=== PATIENT | male | born 1965 | race Caucasian/White ===

== ENCOUNTER 2017-04-08 11:21 | Inpatient (IN) | payer MEDICARE, OTHER ==
[2017-04-08] MEDS ORDERED: HEPARIN SODIUM,PORCINE 5,000 UNIT/ML 1 ML VIAL IV STA (11:38)
[2017-04-08] MEDS ORDERED: NITROGLYCERIN SL TABS 0.4 MG TAB SUBLINGUAL STA ×3 (11:38)
[2017-04-08] MEDS ORDERED: SODIUM CHLORIDE 0.9% 1,000 ML IV STA (11:38)
[2017-04-08] MEDS ORDERED: ASPIRIN 81 MG CHEW PO STA (11:38)
[2017-04-08] MEDS ORDERED: ATORVASTATIN 80 MG TAB PO STA (11:39)
[2017-04-08] MEDS ORDERED: LORazepam 2 MG/ML SYRINGE IV STA (11:39)
--- NOTE | 2017-04-08 11:43 | ED ---
General Adult HPI - General Chief complaint: Chest Pain Stated complaint: chest pain Time Seen by Provider: 04/08/17 11:25 Source: patient, family, RN notes reviewed Mode of arrival: wheelchair Limitations: no limitations - History of Present Illness Initial comments: This is a 51-year-old male who has a past medical history significant for smoking patient denies diabetes hypertension high cholesterol. Patient states proximal that one hour ago he started having chest pain radiated down his left arm. Patient states he was pretty intense so he came to the emergency department. Patient denies any previous cardiac history. Patient denies any shortness of breath or difficulty breathing. Patient denies any diaphoresis. Patient denies abdominal pain patient denies nausea vomiting or diarrhea. Patient denies any recent fever chills or cough. Patient denies any lightheadedness dizziness or near syncopal episode. - Related Data Home Medications Medication Instructions Recorded Confirmed Ibuprofen [Motrin] 200 mg PO Q6HR PRN 04/08/17 04/08/17 Allergies Allergy/AdvReac Type Severity Reaction Status Date / Time No Known Allergies Allergy Verified 04/08/17 11:27 Review of Systems ROS Statement: Those systems with pertinent positive or pertinent negative responses have been documented in the HPI. ROS Other: All systems not noted in ROS Statement are negative. Past Medical History Past Medical History: No Reported History History of Any Multi-Drug Resistant Organisms: None Reported Past Surgical History: Appendectomy Past Psychological History: Depression Smoking Status: Current every day smoker Past Alcohol Use History: Occasional Past Drug Use History: Marijuana General Exam - General Exam Comments Initial Comments: GENERAL: Patient is well-developed and well-nourished. Patient is nontoxic and well- hydrated and is in mild distress. ENT: Neck is soft and supple. No significant lymphadenopathy is noted. Oropharynx is clear. Moist mucous membranes. Neck has full range of motion without eliciting any pain. EYES: The sclera were anicteric and conjunctiva were pink and moist. Extraocular movements were intact and pupils were equal round and reactive to light. Eyelids were unremarkable. PULMONARY: Unlabored respirations. Good breath sounds bilaterally. No audible rales rhonchi or wheezing was noted. CARDIOVASCULAR: There is a regular rate and rhythm without any murmurs gallops or rubs. Femoral pulses are good ABDOMEN: Soft and nontender with normal bowel sounds. No palpable organomegaly was noted. There is no palpable pulsatile mass. SKIN: Skin is clear with no lesions or rashes and otherwise unremarkable. NEUROLOGIC: Patient is alert and oriented x3. Cranial nerves II through XII are grossly intact. Motor and sensory are also intact. Normal speech, volume and content. Symmetrical smile. MUSCULOSKELETAL: Normal extremities with adequate strength and full range of motion. No lower extremity swelling or edema. No calf tenderness. LYMPHATICS: No significant lymphadenopathy is noted PSYCHIATRIC: Normal psychiatric evaluation. Normal interpersonal interactions appears functionally intact in deals appropriately with others. No signs of depression. Patient is moderately anxious Limitations: no limitations Course Vital Signs 04/08/17 11:24 Temperature 96.7 F L Pulse Rate 67 Respiratory 18 Rate Blood Pressure 138/83 O2 Sat by Pulse 100 Oximetry Medical Decision Making - Medical Decision Making EKG shows sinus rhythm at a rate of 67 bpm OK interval is 228 QRS is 94 QT interval 432 QTC is 456. Patient's EKG shows significant ST segment elevation in II, III, and F aVF and some ST segment depression in aVL and 1. I called a STEMI overhead a systolic EKG. I spoke with Dr. Figueroa he came down immediately and saw the patient in the emergency department. I gave the patient nitroglycerin sublingually gave the patient aspirin on heparin bolus Lipitor and headache portable chest x-ray done prior to going to the Customer Technical Services Manager. - Lab Data Result diagrams: 04/08/17 11:35 Lab Results 04/08/17 Range/Units 11:35 WBC 11.2 H (3.8-10.6) k/uL RBC 6.29 H (4.30-5.90) m/uL Hgb 19.2 H (13.0-17.5) gm/dL Hct 59.4 H (39.0-53.0) % MCV 94.4 (80.0-100.0) fL MCH 30.5 (25.0-35.0) pg MCHC 32.3 (31.0-37.0) g/dL RDW 13.8 (11.5-15.5) % Plt Count 236 (150-450) k/uL Neutrophils % 75 % Lymphocytes % 19 % Monocytes % 4 % Eosinophils % 1 % Basophils % 1 % Neutrophils # 8.4 H (1.3-7.7) k/uL Lymphocytes # 2.1 (1.0-4.8) k/uL Monocytes # 0.4 (0-1.0) k/uL Eosinophils # 0.1 (0-0.7) k/uL Basophils # 0.1 (0-0.2) k/uL Critical Care Time Critical Care Time: Yes Total Critical Care Time: 30 Disposition Clinical Impression: ST elevation myocardial infarction (STEMI) Disposition: ADMITTED IP TO THIS [facility] Time of Disposition: 11:43
[2017-04-08] MEDS ORDERED: LIDOCAINE 2% INJ 20 MG/ML (20 ML MDV) ONE ×2 (11:45→12:07)
[2017-04-08 11:53] LABS: Basophils # (A) 0.1 k/uL (0-0.2); Basophils % (A) 1 %; CH 31.8; CHCM 33.9; Eosinophils # (A) 0.1 k/uL (0-0.7); Eosinophils % (A) 1 %; HCT 59.4 % (39.0-53.0); HDW 2.34; HGB 19.2 gm/dL (13.0-17.5); Luc # (Auto) 0.18; Luc % (Auto) 2; Lymphocytes # (A) 2.1 k/uL (1.0-4.8); Lymphocytes % (A) 19 %; MCH 30.5 pg (25.0-35.0); MCHC 32.3 g/dL (31.0-37.0); MCV 94.4 fL (80.0-100.0); Monocytes # (A) 0.4 k/uL (0-1.0); Monocytes % (A) 4 %; Neutrophils # (A) 8.4 k/uL (1.3-7.7); Neutrophils % (A) 75 %; RBC 6.29 m/uL (4.30-5.90); RDW 13.8 % (11.5-15.5); WBC 11.2 k/uL (3.8-10.6); WBC (Perox) 11.24
[2017-04-08 12:01] LABS: ALT 20 U/L (21-72); AST 20 U/L (17-59); Alkaline Phosphatase 71 U/L (38-126); Anion Gap 12 mmol/L; Blood Urea Nitrogen 8 mg/dL (9-20); Calcium 9.9 mg/dL (8.4-10.2); Carbon Dioxide 25 mmol/L (22-30); Chloride 103 mmol/L (98-107); Glucose 97 mg/dL (74-99); Non-African American GFR(MDRD) >60 (>60 ml/min/1.73 sqM); Potassium 4.5 mmol/L (3.5-5.1); Sodium 140 mmol/L (137-145); Total Bilirubin 1.1 mg/dL (0.2-1.3); Total Protein 7.5 g/dL (6.3-8.2)
[2017-04-08] MEDS ORDERED: fentaNYL (PF) 50 MCG/ML 2 ML AMP ONE (12:02)
[2017-04-08] MEDS ORDERED: IV FLUID CONTINUATION 1,000 ML IV ONE (12:04)
[2017-04-08] MEDS ORDERED: fentaNYL (PF) 50 MCG/ML 2 ML AMP IV ONE (12:04)
[2017-04-08] MEDS ORDERED: LIDOCAINE 2% INJ 20 MG/ML SQ ONE ×2 (12:04→12:11)
[2017-04-08 12:06] LABS: INR 1.1 (<1.1); Partial Thromboplastin Time 26.6 sec (22.0-30.0)
[2017-04-08] MEDS ORDERED: PRASUGREL 10 MG TAB ONE (12:08)
[2017-04-08] MEDS ORDERED: MIDAZOLAM 2 MG/2 ML VIAL ONE (12:09)
[2017-04-08 12:11] LABS: Creatine Kinase 67 U/L (55-170)
[2017-04-08] MEDS ORDERED: BIVALIRUDIN 250 MG in SODIUM CHLORIDE 0.9% 50 ML IV ONE (12:11)
[2017-04-08] MEDS ORDERED: MIDAZOLAM 2 MG/2 ML VIAL IV ONE (12:11)
[2017-04-08] MEDS ORDERED: BIVALIRUDIN BOLUS 250 MG/50 ML IV ONE (12:12)
[2017-04-08] MEDS ORDERED: PRASUGREL 10 MG TAB PO ONE (12:12)
[2017-04-08] MEDS ORDERED: NITROGLYCERIN 1000MCG/10ML SYRINGE INTRAARTER ONE (12:21)
[2017-04-08 12:25] LABS: Creatine Kinase MB <0.2 ng/mL (0.0-2.4); Troponin I <0.012 ng/mL (0.000-0.034)
--- NOTE | 2017-04-08 12:28 | XR ---
EXAMINATION TYPE: XR chest 1V portable DATE OF EXAM: 04/08/2017 COMPARISON: NONE INDICATION: Chest pain TECHNIQUE: Single frontal view of the chest is obtained. FINDINGS: The heart size is normal. The pulmonary vasculature is normal. The lungs are clear. IMPRESSION: 1. No acute pulmonary process.
[2017-04-08] MEDS ORDERED: IOHEXOL 350 MG/ML 125ML BOTTLE INJ ONE (12:32)
[2017-04-08] MEDS ORDERED: MAG HYDROX/AL HYDROX/SIMETH 30 ML CUP PO PRN (12:46)
[2017-04-08] MEDS ORDERED: ATROPINE SULFATE 0.1 MG/ML 10ML SYRINGE IV PRN (12:46)
[2017-04-08] MEDS ORDERED: NITROGLYCERIN SL TABS 0.4 MG TAB SUBLINGUAL PRN (12:46)
[2017-04-08] MEDS ORDERED: RX INFO: IV CONTRAST WAS GIVEN 1 EACH MISC MISCELLANE PRN (12:46)
[2017-04-08 12:49] LABS: Glucose,Whole Blood 101 mg/dL (75-99)
[2017-04-08] MEDS ORDERED: SODIUM CHLORIDE 0.9% 1,000 ML IV SCH (13:00)
--- NOTE | 2017-04-08 15:35 | CONS ---
DATE OF CONSULTATION: Mr. Nicholson is a 51-year-old male who has not seen a physician, who presented with symptoms of chest discomfort that occurred early this morning. In the emergency room he was noted to have ST segment elevation inferiorly. Patient has no prior history of cardiac disease. He has been having this pain on and off for the last month. He denies any prior documented history of coronary artery disease, but because he has not seen a physician, he has some dyspnea on exertion. He is not very active physically. He has no dizziness or palpitation or syncope. No PND, orthopnea, or peripheral edema. His current risk factors remarkable for smoking. He does not take any other medications, other risk factors are not available. His only medications is ibuprofen. REVIEW OF SYSTEMS: RESPIRATORY: He has dyspnea on exertion. No recent wheezing, cough. GI system: No recent GI bleeding. No peptic ulcer disease. system: No dysuria or hematuria. Nervous system: No history of stroke or seizure. SOCIAL HISTORY: He drinks caffeine, smokes daily and social alcohol intake. PHYSICAL EXAMINATION: A 51-year-old male, alert, in mild discomfort. Blood pressure 120/70 with a heart rate in the 70s. HEAD: Normocephalic. EYES: Sclerae anicteric. NECK: No bruit. LUNGS: Clear to auscultation. HEART: Regular rate rhythm. S1, S2, no S3, with systolic murmur at the base. No diastolic murmur. ABDOMEN: Soft, nontender, positive bowel sounds. No organomegaly. EXTREMITIES: No edema. Intact distal pulses. LAB DATA: EKG revealed sinus mechanism with ST segment elevation inferiorly consistent with inferior myocardial infarction. IMPRESSION: 1. Acute stemi in the inferior wall. 2. Chronic tobacco use. RECOMMENDATIONS: I recommend proceeding with emergent cardiac catheterization to assess his status and guide his treatment. The rationale behind the procedure as well as risks and complications were discussed with the patient who is in full understanding and agreement. Thank you for this consult. We will follow with you.
[2017-04-08] MEDS: METOPROLOL TARTRATE 25 MG TAB PO SCH ×2 (16:04→20:52)
[2017-04-08] MEDS: ATORVASTATIN 80 MG TAB PO SCH (20:52)
[2017-04-08] MEDS: NICOTINE 21MG/24HR PATCH TRANSDERM SCH (21:15)
[2017-04-08] MEDS: ZOLPIDEM 5 MG TAB PO PRN (22:13)
[2017-04-09 04:47] LABS: Anion Gap 9 mmol/L; Blood Urea Nitrogen 10 mg/dL (9-20); Calcium 8.8 mg/dL (8.4-10.2); Carbon Dioxide 21 mmol/L (22-30); Chloride 110 mmol/L (98-107); Cholesterol 173 mg/dL (<200); Glucose 90 mg/dL (74-99); HDL Cholesterol 41 mg/dL (40-60); Non-African American GFR(MDRD) >60 (>60 ml/min/1.73 sqM); Potassium 4.2 mmol/L (3.5-5.1); Sodium 140 mmol/L (137-145); Triglycerides 65 mg/dL (<150)
[2017-04-09 05:02] LABS: CH 31.1; CHCM 32.5; HCT 50.2 % (39.0-53.0); HDW 2.32; HGB 16.5 gm/dL (13.0-17.5); MCH 31.5 pg (25.0-35.0); MCHC 32.8 g/dL (31.0-37.0); MCV 96.1 fL (80.0-100.0); Mean Platelet Volume 7.4; RBC 5.23 m/uL (4.30-5.90); RDW 13.9 % (11.5-15.5); WBC 9.2 k/uL (3.8-10.6)
[2017-04-09 05:13] LABS: Phosphorous 3.3 mg/dL (2.5-4.5)
--- NOTE | 2017-04-09 06:01 | CC ---
DATE OF SERVICE: Mr. Noyola is a 51-year-old male who has not seen a physician in over 4 years, history of chronic tobacco use, who presented with symptoms of chest discomfort and findings consistent with an acute STEMI in the inferior wall. Recommendation made regarding cardiac catheterization. The procedure as well as the risks and complications were discussed with the patient who is in full understanding and agreement. PROCEDURE: Patient was brought to the cath lab radiological technologist after receiving Versed and Benadryl and achieving moderate conscious sedated state, he was draped and prepped in conventional fashion. Using Xylocaine anesthesia and Seldinger technique, a 6-Djiboutian sheath was introduced in the right femoral artery. Selective right and left coronary angiography was performed using 6 Djib[place]ian FR4 guiding catheter and a 6 [place]ib[place]ian left Leobardo catheter. After performing angioplasty and stenting of the right coronary artery, images of the left coronary system were performed. Following that a 6 [place]ian tight pigtail catheter was introduced in the left ventricle and a 30-degree FLOR view of the left ventricle was obtained. Following that, catheter and sheaths were removed. Hemostasis was obtained with deployment of an Angio-Seal. There was no immediate complication. Patient was returned to his room in stable condition. FINDINGS: LEFT MAIN: This is a short-size vessel bifurcating into left circumflex, left anterior descending artery. The left main coronary artery has no evidence of high-grade stenosis. LEFT ANTERIOR DESCENDING ARTERY: This vessel is large in caliber reaching toward the apex, giving rise to a large diagonal branch in mid segment. The left anterior descending artery has mild plaque of 20% to 30% in the mid segment without any evidence of high-grade stenosis. LEFT CIRCUMFLEX: This is a large nondominant vessel, giving rise to 3 obtuse marginal branches. The second one is the largest in caliber. It has mild intimal disease proximally of 30%. The rest of the vessel has no high-grade stenosis. RIGHT CORONARY ARTERY: This is a large dominant vessel, bifurcating distally to a PDA and posterolateral segment and branches. The right coronary artery proximally has a 99% stenosis with evidence of ruptured plaque and intracoronary thrombus. The rest of the vessel has intimal disease without any evidence of high-grade stenosis. LEFT VENTRICULOGRAM: Left ventriculogram was performed in 30-degree FLOR view and revealed normal left ventricular size. There was minimal inferior wall hypokinesis, estimated ejection fraction 50% to 55%. There was no significant mitral regurgitation. HEMODYNAMICS: There was no gradient across the aortic valve. The left ventricular end-diastolic pressure was 12 mmHg. CONCLUSION: 1. Critical stenosis involving the mid right coronary artery. 2. Mild disease in the left anterior descending artery and the left circumflex. 3. Minimally impaired left ventricular systolic function. RECOMMENDATIONS: In view of finding anatomy, I have recommended proceeding with angioplasty and stenting of the right coronary artery. The procedure as well as risks and complications were discussed with the patient who is in full understanding and agreement.
--- NOTE | 2017-04-09 06:06 | PTCA ---
DATE OF SERVICE: Mr. Noyola is a 51-year-old male who has not seen a physician in over 4 years who presented with an acute STEMI in the inferior wall underwent cardiac catheterization, was found to have subtotally occluded mid right coronary artery. Recommendations were made regarding angioplasty and stenting. The procedure as well as the risks and complications were discussed with the patient, who is in full understanding and agreement. PROCEDURE: Using the 6 Kinyarwanda FR4 guiding catheter and after cannulating the right coronary ostium a 0.014 balanced medium weight J-wire was advanced across the lesion, positioned distally then a 2.5 x 15 mm Trek balloon was advanced, one inflation at 10 atmospheres was done. Following that, the balloon was removed and a 3.25 x 23 mm Xience Alpine stent was deployed post dilated to 16 atmospheres. After the last inflation, after appropriate wait, the balloon and the guidewire withdrawn back in the guiding catheter. Subsequently images of the of left coronary system and left ventriculogram was performed. Following that, catheter and sheaths were removed. Hemostasis was obtained with deployment of an Angio-Seal. There was no immediate complication. Patient was returned to his room in stable condition. Of note, the patient received Angiomax per protocol as well as oral loading dose of Effient. He had no chest discomfort in the procedure and his EKG changes improved. RESULT: Successful stenting of the long segment of the mid right coronary artery with reduction in stenosis from 99% to 0%. RECOMMENDATION: Patient will be continued on aspirin, Effient, beta carri, ZULEYMA inhibitor, simvastatin. The importance of smoking cessation and dual antiplatelet treatment were discussed with the patient and his family and he is in full understanding and agreement.
[2017-04-09] MEDS ORDERED: ATROPINE SULFATE 0.1 MG/ML 10ML SYRINGE ONE (07:58)
[2017-04-09] MEDS: NICOTINE 21MG/24HR PATCH TRANSDERM SCH (08:56)
[2017-04-09] MEDS: ATORVASTATIN 80 MG TAB PO SCH (08:57)
[2017-04-09] MEDS: PRASUGREL 10 MG TAB PO SCH (09:08)
[2017-04-09] MEDS: ASPIRIN 81 MG CHEW PO SCH (09:08)
[2017-04-09] MEDS: LISINOPRIL 5 MG TAB PO SCH (09:08)
--- NOTE | 2017-04-09 10:24 | ECHOF ---
Referral Reason:mi MEASUREMENTS -------- HEIGHT: 175.3 cm WEIGHT: 72.6 kg BP: 144/63 IVSd: 0.8 cm (0.6 - 1.1) LVIDd: 4.7 cm (3.9 - 5.3) LVPWd: 0.9 cm (0.6 - 1.1) IVSs: 1.3 cm LVIDs: 3.7 cm LVPWs: 1.1 cm Ao Diam: 2.5 cm (2.0 - 3.7) AV Cusp: 1.9 cm (1.5 - 2.6) LA Diam: 2.3 cm (2.7 - 3.8) MV EXCURSION: 20.651 mm (> 18.000) MV EF SLOPE: 100 mm/s (70 - 150) EPSS: 0.9 cm MV E Andrew: 0.75 m/s MV DecT: 197 ms MV A Andrew: 0.71 m/s MV E/A Ratio: 1.06 RAP: 5.00 mmHg RVSP: 7.35 mmHg FINDINGS -------- Sinus rhythm. This was a technically good study. Left ventricular wall thickness is normal. Overall left ventricular systolic function is mildly impaired with, an EF between 45 - 50 %. Mitral Doppler inflow pattern suggests diastolic filling abnormality 20.87. Basal inferior LV wall motion is hypokinetic. Basal inferoseptal LV wall motion is hypokinetic. Mid inferoseptal LV wall motion is hypokinetic. The right ventricle is normal in size and function. The left atrium is normal in size. The right atrium is normal in size. The aortic valve is trileaflet, and appears structurally normal. No aortic stenosis or regurgitation. The mitral valve leaflets are mildly thickened. There is trace mitral regurgitation. Trace tricuspid regurgitation present. The right ventricular systolic pressure, as measured by Doppler, is 7.35mmHg. Pulmonic valve appears structurally normal. The aortic root size is normal. Normal inferior vena cava with normal inspiratory collapse consistent with estimated right atrial pressure of 5 mmHg. The pericardium is normal. CONCLUSIONS -------- 1. Sinus rhythm. 2. The left atrium is normal in size. 3. The right atrium is normal in size. 4. The aortic valve is trileaflet, and appears structurally normal. No aortic stenosis or regurgitation. 5. The mitral valve leaflets are mildly thickened. 6. There is trace mitral regurgitation. 7. Trace tricuspid regurgitation present. 8. The right ventricular systolic pressure, as measured by Doppler, is 7.35mmHg. 9. Pulmonic valve appears structurally normal. 10. The aortic root size is normal. 11. Normal inferior vena cava with normal inspiratory collapse consistent with estimated right atrial pressure of 5 mmHg. 12. This was a technically good study. 13. The pericardium is normal. 14. Left ventricular wall thickness is normal. 15. Overall left ventricular systolic function is mildly impaired with, an EF between 45 - 50 %. 16. Mitral Doppler inflow pattern suggest diastolic filling abnormality 20.87. 17. Basal inferior LV wall motion is hypokinetic. 18. Basal inferoseptal LV wall motion is hypokinetic. 19. Mid inferoseptal LV wall motion is hypokinetic. 20. The right ventricle is normal in size and function. ADDICTION PROFESSIONAL: Neda Perrin RDCS
--- NOTE | 2017-04-09 11:26 | PN ---
Mr. Noyola is a 51-year-old male who presented with an acute inferior wall myocardial infarction, underwent stenting of the right coronary artery. He is doing well this morning. He is denying any chest pain. His breathing has been stable. He denies any dizziness or palpitation. He is feeling quite well. He continued to be on aspirin once a day, Effient 10 mg daily, Lipitor 80 mg daily, lisinopril 5 mg daily, metoprolol tartrate 25 mg twice a day, nicotine patch. PHYSICAL EXAMINATION: Blood pressure 147/80 with the heart rate in the 50s. HEAD: Normocephalic. LUNGS: Clear to auscultation. HEART: Regular rate and rhythm. S1, S2, no S3, no rub. ABDOMEN: Soft, nontender. EXTREMITIES: No edema. RIGHT GROIN: No hematoma. LAB DATA: EKG revealed T wave inversion inferiorly. Troponin less than 0.012 for 3 samples. Cholesterol 173, LDL of 119. BUN and creatinine 10 and 0.74. Hemoglobin of 16.5. IMPRESSION: 1. Status post ST-segment elevation myocardial infarction in the inferior wall with no elevation of the troponin with stenting of the right coronary artery. 2. Chronic tobacco use. 3. Hyperlipidemia. RECOMMENDATIONS: Patient will be transferred to the telemetry floor today. His level of activity will be increased and depending on his progress, further recommendation will be made.
[2017-04-09] MEDS: METOPROLOL TARTRATE 25 MG TAB PO SCH ×2 (12:53→19:58)
[2017-04-09] MEDS: ZOLPIDEM 5 MG TAB PO PRN (22:44)
[2017-04-10 03:18] VITALS: RESP 16
[2017-04-10 08:38] LABS: Anion Gap 10 mmol/L; Blood Urea Nitrogen 13 mg/dL (9-20); Calcium 9.5 mg/dL (8.4-10.2); Carbon Dioxide 24 mmol/L (22-30); Chloride 107 mmol/L (98-107); Glucose 84 mg/dL (74-99); Non-African American GFR(MDRD) >60 (>60 ml/min/1.73 sqM); Potassium 4.8 mmol/L (3.5-5.1); Sodium 141 mmol/L (137-145)
[2017-04-10] MEDS: METOPROLOL TARTRATE 25 MG TAB PO SCH (08:45)
[2017-04-10] MEDS: LISINOPRIL 5 MG TAB PO SCH (08:45)
[2017-04-10] MEDS: NICOTINE 21MG/24HR PATCH TRANSDERM SCH (08:45)
[2017-04-10] MEDS: ASPIRIN 81 MG CHEW PO SCH (08:45)
[2017-04-10] MEDS: PRASUGREL 10 MG TAB PO SCH (08:45)
[2017-04-10] MEDS ORDERED: ACETAMINOPHEN TAB 325 MG TAB PO PRN (09:55)
--- NOTE | 2017-04-10 10:08 | CONS ---
DATE OF CONSULTATION: 04/09/2017 CHIEF COMPLAINT: A 51-year-old male status post right by angioplasty in the ICU, for medical management consult. No chest pain or shortness of breath. Feels very happy. Continues to smoke, he is trying to quit smoking. PAST MEDICAL HISTORY: History of suicidal ideations and in the past. He smokes daily. He uses social alcohol. PHYSICAL EXAM: VITAL SIGNS: Stable, afebrile. CARDIOVASCULAR: S1, S2. LUNGS: Clear. GI: Soft. HEMATOLOGIC: Homans. PSYCHIATRIC: Fair mood and affect. NEUROLOGIC: Alert and oriented x3. He is on nicotine patch. ASSESSMENT: 1. He had an ST segment elevated MD in the inferior wall, he is status post RCA, ejection fraction of 50% on echo. 2. Chronic nicotine addiction. PLAN: Continue with beta blockers, cholesterol medicines, anticoagulation medications. Followup in the next 24 to 48 hours.
[2017-04-10 11:39] VITALS: BP 126/73; PULSE 61; TEMP 97.8
--- NOTE | 2017-04-10 14:47 | P.PN ---
Subjective Principal diagnosis: Inferior wall STEMI This is a 51-year-old gentleman who presented to the hospital with an acute inferior wall ST elevation myocardial infarction. He underwent angioplasty and stenting of the RCA. Patient was seen and examined this morning , he has been up ambulating without any difficulty. Denies any chest pain or difficulty in breathing. No arrhythmias have been noted on the monitor. Blood pressure 126/70 with a heart rate in the 60s. CBC normal. BUN 13, creatinine 0.9. Objective - Vital Signs Vital signs: Vital Signs Temp 97.8 F 04/10/17 11:38 Pulse 61 04/10/17 11:40 Resp 16 04/10/17 11:40 BP 126/73 04/10/17 11:38 Pulse Ox 99 04/10/17 11:38 Intake & Output 04/09/17 04/10/17 04/10/17 18:59 06:59 18:59 Intake Total 340 360 Output Total 1300 1 300 Balance -960 -1 60 Weight 76.2 kg Intake: IV 340 Sodium Chloride 0.9% 1, 340 000 ml @ 100 mls/hr IV . Q10H ADEEL Rx#:[id number] Oral 360 Output: Urine 1300 1 300 Other: Voiding Method Urinal Urinal # Voids 1 - Exam PHYSICAL EXAMINATION: HEENT: Head is atraumatic, normocephalic. Pupils equal, round. Neck is supple. There is no elevated jugular venous pressure. HEART EXAMINATION: Heart S1, S2 normal. No murmur or gallop heard. CHEST EXAMINATION: Lungs are clear to auscultation and precussion. No chest wall tenderness is noted on palpation or with deep breathing.] ABDOMEN: [ Soft, nontender. Bowel sounds are heard. No organomegaly noted]. Right groin small amount of ecchymosis, soft, no hematoma. Mild tenderness. EXTREMITIES:[ 2+ peripheral pulses with no evidence of peripheral edema and no calf tenderness noted]. NEUROLOGIC [patient is awake, alert and oriented -3.] . - Labs CBC & Chem 7: 04/09/17 04:15 04/10/17 06:34 Assessment and Plan (1) ST elevation myocardial infarction (STEMI) of inferior wall Status: Acute (2) S/P right coronary artery (RCA) stent placement Status: Acute (3) Nicotine dependence Status: Acute Plan: Patient may be able to be discharged home today. We will make him a follow-up appointment in the office to see Dr. Figueroa in one week. The patient has been instructed regarding the importance of taking his medications regularly and nicotine cessation. Patient will be discharged home on aspirin 81 mg daily, Lipitor 80 mg daily, lisinopril 5 mg daily, metoprolol tartrate 25 mg one tablet by mouth twice a day, nicotine patch daily, Effient 10 mg daily, sublingual nitroglycerin as needed for chest pain. Patient has been provided prescriptions for all of the above medications and he has been educated regarding them as well. DNP note has been reviewed, I agree with a documented findings and plan of care. Patient was seen and examined.
--- NOTE | 2017-04-10 17:43 | PN ---
SUBJECTIVE: A 51-year-old white male, status post circumflex angioplasty, wants to go home. He is having no chest pain or shortness of breath. Cleared from a medical standpoint in my opinion. He will go home on Lipitor 80 mg daily, Zestril 5 mg daily, Lopressor 25 b.i.d., Habitrol patch 21 mg, Effient 10 mg daily. Follow up as an outpatient. CONDITION: Stable. PROGNOSIS: Guarded. Please see further orders. Nicotine cessation stressed with the patient as well as limiting his activities until he is cleared by Cardiology.
== END 2017-04-10 16:37 | disposition left against medical advice (07) | DRG 247 ==
LOC: EC 11:21 → 6ICU 11:42 → 6SEL 04-09 17:56
PROVIDERS: ADMIT Internal Medicine Interventional Cardiology; ATTEND Internal Medicine Interventional Cardiology
PROC: B2111ZZ Fluoroscopy of Multiple Coronary Arteries using Low Osmolar Contrast (ICD-10-PCS; 2017-04-08)
PROC: B2151ZZ Fluoroscopy of Left Heart using Low Osmolar Contrast (ICD-10-PCS; 2017-04-08)
PROC: 027034Z Dilation of Coronary Artery, One Artery with Drug-eluting Intraluminal Device, Percutaneous Approach (ICD-10-PCS; principal; 2017-04-08 11:50)
PROC: 4A023N7 Measurement of Cardiac Sampling and Pressure, Left Heart, Percutaneous Approach (ICD-10-PCS; 2017-04-08 11:50)
DX: I21.19 ST elevation (STEMI) myocardial infarction involving other coronary artery of inferior wall (principal); F32.9 Major depressive disorder, single episode, unspecified; R06.09 Other forms of dyspnea; I25.10 Atherosclerotic heart disease of native coronary artery without angina pectoris; E78.5 Hyperlipidemia, unspecified; F17.200 Nicotine dependence, unspecified, uncomplicated; Z71.6 Tobacco abuse counseling; Z90.49 Acquired absence of other specified parts of digestive tract
CPT/HCPCS: 71010; 80048; 80053; 80061; 82550; 82553; 83735; 84100; 84484; 85025; 85027; 85347; 85610; 85730; 93005; 93306; 93458; 96374; 96375; 99291

== ENCOUNTER 2019-04-22 17:17 | Emergency (ER) | payer MEDICARE, OTHER ==
[2019-04-22 17:58] VITALS: BP 175/100; PULSE 114; RESP 18; TEMP 98.8
--- NOTE | 2019-04-22 18:10 | ED ---
Psych HPI - General Chief Complaint: Psychiatric Symptoms Stated Complaint: Mental health Time Seen by Provider: 04/22/19 18:03 Source: patient Mode of arrival: ambulatory - History of Present Illness Initial Comments: 53yo male presenting for depression. He states he has suffered depression his entire life. Patient states that he has always had on and off suicidal ideation. He states he does not have any currently however he cannot stop crying. He states he has been a prior his whole life. He states that he got in a fight with his and he does not have a place to stay tonight. He states this is causing increased stress and depression. Patient denies any homicidal ideation. Patient denies any hallucinations he denies any other associated symptoms he denies chest pain shortness of breath dizziness headache nausea vomiting. Upon arrival patient's heart rate is elevated, as well as blood pressure. Patient states he is anxious. - Related Data Previous Rx's Medication Instructions Recorded Aspirin 81 mg PO DAILY #303 04/10/17 Atorvastatin [Lipitor] 80 mg PO HS #30 tab 04/10/17 Lisinopril [Zestril] 5 mg PO DAILY #30 tab 04/10/17 Metoprolol Tartrate [Lopressor] 25 mg PO BID #60 tab 04/10/17 Nicotine 21Mg/24Hr Patch [Habitrol] 1 patch TRANSDERM DAILY #30 patch 04/10/17 Nitroglycerin Sl Tabs [Nitrostat] 0.4 mg SUBLINGUAL Q5M PRN #25 tab 04/10/17 Prasugrel [Effient] 10 mg PO DAILY #30 tab 04/10/17 Allergies Allergy/AdvReac Type Severity Reaction Status Date / Time No Known Allergies Allergy Verified 04/22/19 17:58 Review of Systems ROS Statement: Those systems with pertinent positive or pertinent negative responses have been documented in the HPI. ROS Other: All systems not noted in ROS Statement are negative. Past Medical History Past Medical History: No Reported History, GERD/Reflux, Myocardial Infarction ([place]) Additional Past Medical History / Comment(s): 04-08-17 STEMI. ARTHRITIS IN NECK. History of Any Multi-Drug Resistant Organisms: None Reported Past Surgical History: Appendectomy, Heart Catheterization With Stent Additional Past Surgical History / Comment(s): 04-08-17 HEART CATH W/ STENT TO RCA Past Anesthesia/Blood Transfusion Reactions: No Reported Reaction Past Psychological History: Depression Smoking Status: Current every day smoker Past Alcohol Use History: None Reported, Occasional Past Drug Use History: None Reported - Past Family History Mother Family Medical History: COPD Additional Family Medical History / Comment(s): EMPHYSEMA Father Family Medical History: Cancer Additional Family Medical History / Comment(s): LUNG CANCER General Exam - General Exam Comments Initial Comments: General: The patient is awake and alert, in no distress, and does not appear acutely ill. Eye:+3 mm pupils are equal, round and reactive to light, extra-ocular movements are intact. No nystagmus. There is normal conjunctiva bilaterally. No signs of icterus. Ears, nose, mouth and throat: There are moist mucous membranes and no oral lesions. Neck: The neck is supple, there is no tenderness or JVD. Cardiovascular: There is a regular rate and rhythm. No murmur, rub or gallop is appreciated. Respiratory: Lungs are clear to auscultation, respirations are non-labored, breath sounds are equal. No wheezes, stridor, rales, or rhonchi. Gastrointestinal: Soft, non-distended, non-tender abdomen without masses or organomegaly noted. There is no rebound or guarding present. No CVA tenderness. Bowel sounds are unremarkable. Musculoskeletal: Normal ROM, no tenderness. Strength 5/5. Sensation intact. Pulses equal bilaterally 2+. Neurological: A&O x 3. CN II-XII intact, There are no obvious motor or sensory deficits. Coordination appears grossly intact. Speech is normal. Skin: Skin is warm and dry and no rashes or lesions are noted. Psychiatric: Cooperative, tearful at time, appropriate eye contact Limitations: no limitations Course Vital Signs 04/22/19 17:55 Temperature 98.8 F Pulse Rate 114 H Respiratory 18 Rate Blood Pressure 175/100 O2 Sat by Pulse 97 Oximetry Medical Decision Making - Medical Decision Making 33-year-old male presenting today for chief complaint of depression. He states he was kicked out of his home by his girlfriend. He states this is making him depressed. States she has nowhere to stay. Patient states he has only had fleeting suicidal ideation. Patient denies any current denies any current homicidal ideation. Patient states he does nowhere to go. Patient is medically cleared given no other complaints and no abnormal physical examination findings for EPS evaluation. He has recommended discharge. Patient is provided resources for shelters as well as 3 mental health counseling and suicidal hotlines. Patient left prior to final discussion or repeat VS, which I wanted to obtain prior to final disposition and discharge. I did discuss the case however after EPS recommendations with attending provider Dr Roblero. Disposition Clinical Impression: Depression Disposition: HOME SELF-CARE Condition: Stable Instructions (If sedation given, give patient instructions): Depression (ED) Additional Instructions: Please use medication as discussed. Please follow-up with family doctor and [facility] as discussed. Please return to emergency room if the symptoms increase or worsen or for any other concerns, suicidal ideations. Is patient prescribed a controlled substance at d/c from ED?: No Referrals: None,Stated [Primary Care Provider] - 1-2 days Time of Disposition: 19:54
[2019-04-22] MEDS ORDERED: ALPRAZolam 0.5 MG TAB PO STA (18:35)
== END 2019-04-22 20:34 | disposition home or self-care (01) ==
LOC: EC 17:17
DX: F32.9 Major depressive disorder, single episode, unspecified (principal); F43.9 Reaction to severe stress, unspecified; R45.851 Suicidal ideations; I25.2 Old myocardial infarction; F17.200 Nicotine dependence, unspecified, uncomplicated; Z95.5 Presence of coronary angioplasty implant and graft
CPT/HCPCS: 82075; 99284

== ENCOUNTER 2022-09-05 20:56 | Inpatient (IN) | payer MEDICARE, MEDICAID ==
--- NOTE | 2022-09-05 21:55 | ED ---
General Adult HPI - General Chief complaint: Psychiatric Symptoms Stated complaint: Mental Health Time Seen by Provider: 09/05/22 21:44 Source: patient, RN notes reviewed, old records reviewed Mode of arrival: ambulatory Limitations: no limitations - History of Present Illness Initial comments: Patient is a 56-year-old male with past medical history remarkable for psychiatric illness including depression presents [facility] complaining of worsening depression. He has been off his psychiatric medications. States he has been feeling more depressed lately. He is homeless. States he is suicidal ideations as well as some plans including obtaining a gun and shooting himself. Denies any attempts. Denies any homicidal ideations, plans, attempts. Denies any visual or auditory hallucinations. Denies any chest pain, shortness breath, abdominal pain, nausea, vomiting. Denies any fevers, chills, cough. His no other acute complaints at this time. He seeking psychiatric evaluation. States he has not followed up with a psychiatrist or therapist because [place] [facility] [place] [facility], however plans fell through and now has not followed up with any psychiatrist in quite some time. Presents for further evaluation at this time. - Related Data Previous Rx's Medication Instructions Recorded Aspirin 81 mg PO DAILY #303 04/10/17 Atorvastatin [Lipitor] 80 mg PO HS #30 tab 04/10/17 Metoprolol Tartrate [Lopressor] 25 mg PO BID #60 tab 04/10/17 Nicotine 21Mg/24Hr Patch [Habitrol] 1 patch TRANSDERM DAILY #30 patch 04/10/17 Nitroglycerin Sl Tabs [Nitrostat] 0.4 mg SUBLINGUAL Q5M PRN #25 tab 04/10/17 Prasugrel [Effient] 10 mg PO DAILY #30 tab 04/10/17 lisinopriL [Zestril] 5 mg PO DAILY #30 tab 04/10/17 Allergies Allergy/AdvReac Type Severity Reaction Status Date / Time No Known Allergies Allergy Verified 09/05/22 21:12 Review of Systems ROS Statement: Those systems with pertinent positive or pertinent negative responses have been documented in the HPI. Review of Systems: CONST: Denies fever EYES: Denies blurry vision ENT: Denies nasal congestion C/V: Denies Chest pain RESP: Denies shortness of breath GI: Denies abdominal pain : Denies dysuria SKIN: Denies rash. MSK: Denies joint pain. NEURO: Denies headache PSYCH: Denies homicidal ideations/plans/attempts. Denies visual or auditory hallucinations. He endorses suicidal ideations, plan. Denies attempt. ROS Other: All systems not noted in ROS Statement are negative. Past Medical History Past Medical History: No Reported History, GERD/Reflux, Myocardial Infarction ([place]) Additional Past Medical History / Comment(s): 04-08-17 STEMI. ARTHRITIS IN NECK. History of Any Multi-Drug Resistant Organisms: None Reported Past Surgical History: Appendectomy, Heart Catheterization With Stent Additional Past Surgical History / Comment(s): 04-08-17 HEART CATH W/ STENT TO RCA Past Anesthesia/Blood Transfusion Reactions: No Reported Reaction Past Psychological History: Depression Smoking Status: Current every day smoker Past Alcohol Use History: Occasional Past Drug Use History: Marijuana - Past Family History Mother Family Medical History: COPD Additional Family Medical History / Comment(s): EMPHYSEMA Father Family Medical History: Cancer Additional Family Medical History / Comment(s): LUNG CANCER General Exam - General Exam Comments Initial Comments: General: Appears in no acute distress. HEAD: Normal with no signs of head trauma. EYES: PERRLA, EOMI, conjunctiva normal, no discharge. Pupils 2 mm and equal bilaterally. ENT: Hearing grossly intact, normal oropharynx. RESPIRATORY: Clear breath sounds bilaterally. No wheezes, rales, or rhonchi. C/V: Regular rate and rhythm. S1 and S2 auscultated, peripheral pulses 2+ and intact throughout ABD: Abd is soft, nontender, nondistended EXT: Normal range of motion, no obvious deformity SKIN: No rashes or lesions observed on exposed skin. NEURO: Alert and oriented 4. Limitations: no limitations Course Vital Signs 09/05/22 09/05/22 21:06 22:01 Temperature 97.7 F 98.0 F Pulse Rate 110 H 91 Respiratory 20 14 Rate Blood Pressure 181/102 140/88 O2 Sat by Pulse 98 96 Oximetry Medical Decision Making - Medical Decision Making Based on the patient's presentation and physical exam, he is seeking psychiatric evaluation. He has suicidal ideations as well as worsening depression. Patient was placed in green scrubs. Suicide precautions were ordered. Sitter was ordered. BAT is 0. UDS is pending. Vital signs are within acceptable limits. Patient is medically cleared for evaluation by psychiatry. EPS is notified. Disposition is pending psychiatric evaluation. UDS returned positive for marijuana. EPS did place basic laboratory studies for the patient. Patient was evaluated by EPS. They determined that he does meet inpatient criteria. Patient was admitted to inpatient psychiatry in stable condition. - Lab Data Result diagrams: 09/05/22 22:09 09/05/22 22:09 Lab Results 09/05/22 09/05/22 09/05/22 Range/Units 21:57 21:57 22:09 WBC (3.8-10.6) k/uL RBC (4.30-5.90) m/uL Hgb (13.0-17.5) gm/dL Hct (39.0-53.0) % MCV (80.0-100.0) fL MCH (25.0-35.0) pg MCHC (31.0-37.0) g/dL RDW (11.5-15.5) % Plt Count (150-450) k/uL MPV Neutrophils % % Lymphocytes % % Monocytes % % Eosinophils % % Basophils % % Neutrophils # (1.3-7.7) k/uL Lymphocytes # (1.0-4.8) k/uL Monocytes # (0-1.0) k/uL Eosinophils # (0-0.7) k/uL Basophils # (0-0.2) k/uL Sodium (137-145) mmol/L Potassium (3.5-5.1) mmol/L Chloride (98-107) mmol/L Carbon Dioxide (22-30) mmol/L Anion Gap mmol/L BUN (9-20) mg/dL Creatinine (0.66-1.25) mg/dL Est GFR (CKD-EPI)AfAm (>60 ml/min/1.73 sqM) Est GFR (CKD-EPI)NonAf (>60 ml/min/1.73 sqM) Glucose (74-99) mg/dL Calcium (8.4-10.2) mg/dL Total Bilirubin (0.2-1.3) mg/dL AST (17-59) U/L ALT (4-49) U/L Alkaline Phosphatase (38-126) U/L Total Protein (6.3-8.2) g/dL Albumin (3.5-5.0) g/dL Urine Color Light Yellow Urine Appearance Clear (Clear) Urine pH 5.5 (5.0-8.0) Ur Specific [place] 1.004 (1.001-1.035) Urine Protein Negative (Negative) Urine Glucose (UA) Negative (Negative) Urine Ketones Negative (Negative) Urine Blood Negative (Negative) Urine Nitrite Negative (Negative) Urine Bilirubin Negative (Negative) Urine Urobilinogen <2.0 (<2.0) mg/dL Ur Leukocyte Esterase Negative (Negative) Urine Opiates Screen Not Detected (NotDetected) Ur Oxycodone Screen Not Detected (NotDetected) Urine Methadone Screen Not Detected (NotDetected) Ur Propoxyphene Screen Not Detected (NotDetected) Ur Barbiturates Screen Not Detected (NotDetected) U Tricyclic Antidepress Not Detected (NotDetected) Ur Phencyclidine Scrn Not Detected (NotDetected) Ur Amphetamines Screen Not Detected (NotDetected) U Methamphetamines Scrn Not Detected (NotDetected) U Benzodiazepines Scrn Not Detected (NotDetected) Urine Cocaine Screen Not Detected (NotDetected) U Marijuana (THC) Screen Detected H (NotDetected) Coronavirus (PCR) Not Detected (Not Detectd) 09/05/22 09/05/22 Range/Units 22:09 22:09 WBC 10.6 (3.8-10.6) k/uL RBC 5.42 (4.30-5.90) m/uL Hgb 17.1 (13.0-17.5) gm/dL Hct 50.0 (39.0-53.0) % MCV 92.2 (80.0-100.0) fL MCH 31.5 (25.0-35.0) pg MCHC 34.2 (31.0-37.0) g/dL RDW 12.7 (11.5-15.5) % Plt Count 224 (150-450) k/uL MPV 7.6 Neutrophils % 64 % Lymphocytes % 27 % Monocytes % 5 % Eosinophils % 2 % Basophils % 1 % Neutrophils # 6.8 (1.3-7.7) k/uL Lymphocytes # 2.8 (1.0-4.8) k/uL Monocytes # 0.5 (0-1.0) k/uL Eosinophils # 0.2 (0-0.7) k/uL Basophils # 0.1 (0-0.2) k/uL Sodium 134 L (137-145) mmol/L Potassium 3.9 (3.5-5.1) mmol/L Chloride 103 (98-107) mmol/L Carbon Dioxide 24 (22-30) mmol/L Anion Gap 7 mmol/L BUN 8 L (9-20) mg/dL Creatinine 0.62 L (0.66-1.25) mg/dL Est GFR (CKD-EPI)AfAm >90 (>60 ml/min/1.73 sqM) Est GFR (CKD-EPI)NonAf >90 (>60 ml/min/1.73 sqM) Glucose 85 (74-99) mg/dL Calcium 9.0 (8.4-10.2) mg/dL Total Bilirubin 0.5 (0.2-1.3) mg/dL AST 24 (17-59) U/L ALT 16 (4-49) U/L Alkaline Phosphatase 76 (38-126) U/L Total Protein 6.6 (6.3-8.2) g/dL Albumin 4.2 (3.5-5.0) g/dL Urine Color Urine Appearance (Clear) Urine pH (5.0-8.0) Ur Specific [place] (1.001-1.035) Urine Protein (Negative) Urine Glucose (UA) (Negative) Urine Ketones (Negative) Urine Blood (Negative) Urine Nitrite (Negative) Urine Bilirubin (Negative) Urine Urobilinogen (<2.0) mg/dL Ur Leukocyte Esterase (Negative) Urine Opiates Screen (NotDetected) Ur Oxycodone Screen (NotDetected) Urine Methadone Screen (NotDetected) Ur Propoxyphene Screen (NotDetected) Ur Barbiturates Screen (NotDetected) U Tricyclic Antidepress (NotDetected) Ur Phencyclidine Scrn (NotDetected) Ur Amphetamines Screen (NotDetected) U Methamphetamines Scrn (NotDetected) U Benzodiazepines Scrn (NotDetected) Urine Cocaine Screen (NotDetected) U Marijuana (THC) Screen (NotDetected) Coronavirus (PCR) (Not Detectd) Disposition Clinical Impression: Encounter for psychiatric assessment Disposition: ADMITTED IP TO THIS HOSP Condition: Stable
[2022-09-05 22:04] LABS: Appearance,Urine Clear (Clear); Bilirubin,Urine Negative (Negative); Blood,Urine Negative (Negative); Color,Urine Light Yellow; Glucose,Urine (UA) Negative (Negative); Ketones,Urine Negative (Negative); Leukocyte Esterase,Urine Negative (Negative); Nitrite,Urine Negative (Negative); PH, Urine 5.5 (5.0-8.0); Protein,Urine Negative (Negative); Specific Gravity,Urine 1.004 (1.001-1.035); Urobilinogen,Urine <2.0 mg/dL (<2.0)
[2022-09-05 22:21] LABS: Amphetamine Screen,Urine Not Detected (NotDetected); Barbiturate Screen,Urine Not Detected (NotDetected); Benzodiazepines Screen,Urine Not Detected (NotDetected); Cocaine Screen,Urine Not Detected (NotDetected); Methadone Screen, Urine Not Detected (NotDetected); Opiate Screen,Urine Not Detected (NotDetected); Oxycodone Screen, Urine Not Detected (NotDetected); Phencyclidine Screen,Urine Not Detected (NotDetected); Tricyclic Antidepressant,Urine Not Detected (NotDetected); Urn Cannabinoid Scrn Detected (NotDetected)
[2022-09-05 22:33] LABS: Basophils # (A) 0.1 k/uL (0-0.2); Basophils % (A) 1 %; Eosinophils # (A) 0.2 k/uL (0-0.7); Eosinophils % (A) 2 %; HGB 17.1 gm/dL (13.0-17.5); Lymphocytes # (A) 2.8 k/uL (1.0-4.8); Lymphocytes % (A) 27 %; MCH 31.5 pg (25.0-35.0); MCHC 34.2 g/dL (31.0-37.0); MCV 92.2 fL (80.0-100.0); Mean Platelet Volume 7.6; Monocytes # (A) 0.5 k/uL (0-1.0); Monocytes % (A) 5 %; Neutrophils # (A) 6.8 k/uL (1.3-7.7); Neutrophils % (A) 64 %; Platelet Count 224 k/uL (150-450); RBC 5.42 m/uL (4.30-5.90); RDW 12.7 % (11.5-15.5); WBC 10.6 k/uL (3.8-10.6)
[2022-09-05 22:43] LABS: ALT 16 U/L (4-49); AST 24 U/L (17-59); African American GFR (CKD) >90 (>60 ml/min/1.73 sqM); Albumin 4.2 g/dL (3.5-5.0); Alkaline Phosphatase 76 U/L (38-126); Anion Gap 7 mmol/L; Blood Urea Nitrogen 8 mg/dL (9-20); Carbon Dioxide 24 mmol/L (22-30); Chloride 103 mmol/L (98-107); Glucose 85 mg/dL (74-99); Non-African American GFR(CKD) >90 (>60 ml/min/1.73 sqM); Potassium 3.9 mmol/L (3.5-5.1); Sodium 134 mmol/L (137-145); Total Bilirubin 0.5 mg/dL (0.2-1.3); Total Protein 6.6 g/dL (6.3-8.2)
[2022-09-06] MEDS ORDERED: MAGNESIUM HYDROXIDE 2,400 MG/10 ML CUP PO PRN (02:18)
[2022-09-06] MEDS ORDERED: MAG HYDROX/AL HYDROX/SIMETH 355 ML BOTTLE PO PRN (02:18)
[2022-09-06] MEDS ORDERED: LORazepam 1 MG TAB PO PRN (02:18)
[2022-09-06] MEDS ORDERED: HALOPERIDOL LACTATE 5 MG/ML 1 ML VIAL IM PRN (02:18)
[2022-09-06] MEDS ORDERED: LORazepam 1 MG/0.5 ML VIAL IM PRN (02:21)
[2022-09-06] MEDS ORDERED: haloperidoL 5 MG TAB PO PRN (02:21)
[2022-09-06] MEDS: lisinopriL 5 MG TAB PO SCH (08:54)
[2022-09-06] MEDS: NICOTINE 7MG/24HR PATCH TRANSDERM SCH (08:54)
[2022-09-06] MEDS: SERTRALINE 25 MG TAB PO SCH (11:39)
--- NOTE | 2022-09-06 19:09 | P.HP ---
Psychiatric H&P - . H&P Date: 09/06/22 History & Physical: Allergies Allergy/AdvReac Type Severity Reaction Status Date / Time No Known Allergies Allergy Verified 09/05/22 21:12 Vital Signs Temp 97.7 F 09/06/22 02:48 Pulse 96 09/06/22 02:48 Resp 18 09/06/22 02:48 BP 148/73 09/06/22 02:48 Pulse Ox 95 09/06/22 02:48 FiO2 Intake & Output 09/05/22 09/06/22 09/06/22 18:59 06:59 18:59 Weight 67.67 kg Laboratory Last Values WBC 10.6 k/uL (3.8-10.6) 09/05/22 22:09 RBC 5.42 m/uL (4.30-5.90) 09/05/22 22:09 Hgb 17.1 gm/dL (13.0-17.5) 09/05/22 22:09 Hct 50.0 % (39.0-53.0) 09/05/22 22:09 MCV 92.2 fL (80.0-100.0) 09/05/22 22:09 MCH 31.5 pg (25.0-35.0) 09/05/22 22:09 MCHC 34.2 g/dL (31.0-37.0) 09/05/22 22:09 RDW 12.7 % (11.5-15.5) 09/05/22 22:09 Plt Count 224 k/uL (150-450) 09/05/22 22:09 MPV 7.6 09/05/22 22:09 Neutrophils % 64 % 09/05/22 22:09 Lymphocytes % 27 % 09/05/22 22:09 Monocytes % 5 % 09/05/22 22:09 Eosinophils % 2 % 09/05/22 22:09 Basophils % 1 % 09/05/22 22:09 Neutrophils # 6.8 k/uL (1.3-7.7) 09/05/22 22:09 Lymphocytes # 2.8 k/uL (1.0-4.8) 09/05/22 22:09 Monocytes # 0.5 k/uL (0-1.0) 09/05/22 22:09 Eosinophils # 0.2 k/uL (0-0.7) 09/05/22 22:09 Basophils # 0.1 k/uL (0-0.2) 09/05/22 22:09 Sodium 134 mmol/L (137-145) L 09/05/22 22:09 Potassium 3.9 mmol/L (3.5-5.1) 09/05/22 22:09 Chloride 103 mmol/L (98-107) 09/05/22 22:09 Carbon Dioxide 24 mmol/L (22-30) 09/05/22 22:09 Anion Gap 7 mmol/L 09/05/22 22:09 BUN 8 mg/dL (9-20) L 09/05/22 22:09 Creatinine 0.62 mg/dL (0.66-1.25) L 09/05/22 22:09 Est GFR (CKD-EPI)AfAm >90 (>60 ml/min/1.73 sqM) 09/05/22 22:09 Est GFR (CKD-EPI)NonAf >90 (>60 ml/min/1.73 sqM) 09/05/22 22:09 Glucose 85 mg/dL (74-99) 09/05/22 22:09 Calcium 9.0 mg/dL (8.4-10.2) 09/05/22 22:09 Total Bilirubin 0.5 mg/dL (0.2-1.3) 09/05/22 22:09 AST 24 U/L (17-59) 09/05/22 22:09 ALT 16 U/L (4-49) 09/05/22 22:09 Alkaline Phosphatase 76 U/L (38-126) 09/05/22 22:09 Total Protein 6.6 g/dL (6.3-8.2) 09/05/22 22:09 Albumin 4.2 g/dL (3.5-5.0) 09/05/22 22:09 Urine Color Light Yellow 09/05/22:57 Urine Appearance Clear (Clear) 09/05/22:57 Urine pH 5.5 (5.0-8.0) 09/05/22 21:57 Ur Specific [place] 1.004 (1.001-1.035) 09/05/22:57 Urine Protein Negative (Negative) 09/05/22:57 Urine Glucose (UA) Negative (Negative) 09/05/22 21:57 Urine Ketones Negative (Negative) 09/05/22 21:57 Urine Blood Negative (Negative) 09/05/22 21:57 Urine Nitrite Negative (Negative) 09/05/22 21:57 Urine Bilirubin Negative (Negative) 09/05/22 21:57 Urine Urobilinogen <2.0 mg/dL (<2.0) 09/05/22 21:57 Ur Leukocyte Esterase Negative (Negative) 09/05/22 21:57 Urine Opiates Screen Not Detected (NotDetected) 09/05/22 21:57 Ur Oxycodone Screen Not Detected (NotDetected) 09/05/22 21:57 Urine Methadone Screen Not Detected (NotDetected) 09/05/22 21:57 Ur Propoxyphene Screen Not Detected (NotDetected) 09/05/22 21:57 Ur Barbiturates Screen Not Detected (NotDetected) 09/05/22 21:57 U Tricyclic Antidepress Not Detected (NotDetected) 09/05/22 21:57 Ur Phencyclidine Scrn Not Detected (NotDetected) 09/05/22 21:57 Ur Amphetamines Screen Not Detected (NotDetected) 09/05/22 21:57 U Methamphetamines Scrn Not Detected (NotDetected) 09/05/22 21:57 U Benzodiazepines Scrn Not Detected (NotDetected) 09/05/22 21:57 Urine Cocaine Screen Not Detected (NotDetected) 09/05/22 21:57 U Marijuana (THC) Screen Detected (NotDetected) H 09/05/22 21:57 Coronavirus (PCR) Not Detected (Not Detectd) 09/05/22 22:09 09/06/22 08:55 IDENTIFYING DATA: Patient is a single, unemployed, 56-year-old [place] male who is presenting with suicidal ideation HPI: Patient reports long hx of depression since childhood. He reports recent triggers including breakup with girlfriend of 8 years and siblings being diagnosed with tumors. He has also been strained due to his homelessness and unemployment. He endorses SI with plan to hang himself or obtain a firearm to shoot himself. He denies current access to firearms. He reports he would "like to end it." He endorses feeling hopeless and worthless. He endorses trouble sleeping and decreased appetite due to his mood. More recently, he has been having increased appetite. He has low energy levels and anhedonia. States that he used to be on Celexa but thought that he would be fine without it and stopped taking it early this year. Patient is interested in stabilization of his psychotropic medications. He reports being worried constantly. He reports being on edge, experiences restlessness, and keyed up. He denies symptoms of rossy and psychosis. He denies homicidal ideation, as asked and assessed. PSYCH HX: Previous psychiatrist: [facility]- Dr. Long from [phone]. Past tx: Celexa - reports doing well on it Hospitalizations: Last hospitalized in around 2011 for SA NSSI: Denies SA: 3 attempts: two times OD on pills, started car in garage PMH: Past Medical History: No Reported History, GERD/Reflux, Myocardial Infarction ([place]) Additional Past Medical History / Comment(s): 04-08-17 STEMI. ARTHRITIS IN NECK. History of Any Multi-Drug Resistant Organisms: None Reported Past Surgical History: Appendectomy, Heart Catheterization With Stent Additional Past Surgical History / Comment(s): 04-08-17 HEART CATH W/ STENT TO RCA Past Anesthesia/Blood Transfusion Reactions: No Reported Reaction ALLERGIES: NKDA [facility] Head injuries: Denies Seizures: Denies SUBSTANCE HX: Alcohol: Occasional currently Tobacco: 5 cigs daily Cannabis: Occasional. UDS positive for cannabis Denies using other substances SOCIAL/LEGAL HX: He grew up in [place] to parents. He is the youngest of 6 siblings. He was living with girlfriend of 8 years and due to interpersonal trouble, they in May 2022. Oldest sister and brother have tumors. He has been living in his car. 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 Currently on SSI. Legal problems: DUI in 2003 FAM PSYCH HX: Brother and sister: mental illness Suicide attempts: Cousin committed suicide DEVELOPMENT: Denies complications. Denies being behind on milestones MENTAL STATUS EXAM: General Appearance: Patient appears to be stated age is alert, directable. Patient appears to have poor hygiene and grooming. Behavior: Patient is seated without any agitated behavior. Poor eye contact Speech: Patient's speech is fluent and nonpressured. Mood/Affect: Patient reports their mood is depressed, affect is congruent and tearful. Suicidality/Homicidality: Patient denies having any homicidal ideation intent or plan. Endorses SI with plan Perceptions: Patient denies any visual hallucinations and denies any auditory hallucinations Though content/process:There is no evidence of any delusional thought content and thought process is linear and goal-directed. Memory and concentration: AOX3, grossly intact for the purposes of this session. Can spell "WORLD" backwards Judgment and insight: poor STRENGTHS/WEAKNESSES: Strength is interest in treatment and resilience. Weakness is social stressors. INTELLECT: average IMPRESSIONS: Major depressive disorder, recurrent, severe without psychotic features Generalized Anxiety Disorder Cannabis use disorder Tobacco use disorder Cluster B traits PLAN: -Patient is admitted under voluntary status to [facility] for stabilization of ps ychiatric symptoms and safety. Patient signed adult voluntary form and medication consent and both placed in patient's chart. -Medications: Zoloft 25 mg daily for depression and anxiety with plan to increase if tolerated - Nicotine patch -Patient was counselled on substance abuse and desired to cut back on use. Motivational interviewing. -Patient was informed of the risks, benefits and side effects of the medication and patient verbally consented to taking the medications. -Internal Medicine consult to perform medical evaluation and physical. -SW on board for discharge planning. Encourage patient to participate in groups to work on coping skills. 09/06/22 09:50 09/06/22 18:58 09/06/22 19:08
[2022-09-06] MEDS: ATORVASTATIN 80 MG TAB PO SCH (21:54)
[2022-09-07] MEDS: lisinopriL 5 MG TAB PO SCH (08:34)
[2022-09-07] MEDS: SERTRALINE 25 MG TAB PO SCH (08:34)
[2022-09-07] MEDS: NICOTINE 7MG/24HR PATCH TRANSDERM SCH (08:34)
[2022-09-07 12:20] LABS: Chol/HDL Ratio 3.58 Ratio; LDL Cholesterol,Calculated 139.1 mg/dL (0.0-131.0); VLDL Calculation 17.98 mg/dL (5.00-40.00)
--- NOTE | 2022-09-07 17:47 | P.PN ---
Progress Note - Text Progress Note Date: 09/07/22 Interval History: Patient was seen in his room. He was stating that he continues to have rapid thoughts. He reports feeling depressed and continues to have suicidal ideation. Discussed coping strategies. He states that he likes photography. Patient is not currently future oriented. At this time patient denies homicidal ideations, intent or plan. Patient denies any auditory, visual hallucinations and denies any paranoia or delusions. Patient denies any side effects from the medications and has been compliant with meds. He is agreeable with increasing the medication today. Mental Status Exam: General Appearance: Patient appears to be stated age is alert, directable. Patient appears to have poor hygiene and grooming. Behavior: Patient is seated without any agitated behavior. Poor eye contact Speech: Patient's speech is fluent and nonpressured. Mood/Affect: Patient reports their mood is depressed, affect is congruent and tearful. Suicidality/Homicidality: Patient denies having any homicidal ideation intent or plan. Endorses SI with plan Perceptions: Patient denies any visual hallucinations and denies any auditory hallucinations Though content/process:There is no evidence of any delusional thought content and thought process is linear and goal-directed. Memory and concentration: AOX3, grossly intact for the purposes of this session. Can spell "WORLD" backwards Judgment and insight: poor Assessment Major depressive disorder, recurrent, severe without psychotic features Generalized Anxiety Disorder Cannabis use disorder Tobacco use disorder Cluster B traits Plan: -Patient is admitted under voluntary status to [facility] for stabilization of psychiatric symptoms and safety. Patient signed adult voluntary form and medication consent and both placed in patient's chart. -Medications: Increase Zoloft to 50 mg daily for depression and anxiety with plan to increase if tolerated - Nicotine patch -Patient was counselled on substance abuse and desired to cut back on use. Motivational interviewing. -Patient was informed of the risks, benefits and side effects of the medication and patient verbally consented to taking the medications. -Internal Medicine consult to perform medical evaluation and physical. -SW on board for discharge planning. Encourage patient to participate in groups to work on coping skills.
[2022-09-07] MEDS ORDERED: SERTRALINE 25 MG TAB PO STA (17:50)
[2022-09-07] MEDS: ATORVASTATIN 80 MG TAB PO SCH (21:28)
--- NOTE | 2022-09-07 22:42 | P.PN ---
Progress Note - Text Progress Note Date: 09/07/22 Attempted to see the patient at 1999 on 09/07. The patient refused to be seen or be evaluated.
[2022-09-08] MEDS: ACETAMINOPHEN TAB 325 MG TAB PO PRN (08:54)
[2022-09-08] MEDS: SERTRALINE 50 MG TAB PO SCH (08:54)
[2022-09-08] MEDS: NICOTINE 7MG/24HR PATCH TRANSDERM SCH (08:55)
[2022-09-08] MEDS: lisinopriL 5 MG TAB PO SCH (08:59)
[2022-09-08] MEDS: ASPIRIN 81 MG PO SCH (12:58)
--- NOTE | 2022-09-08 13:29 | P.PN ---
Progress Note - Text Progress Note Date: 09/08/22 Interval History: Patient was seen today for psychiatric follow-up. Patient claims that he came into the hospital for help however states that "I'm not getting it properly here" and claims that "I regret coming here". He has very poor eye contact and was fairly avoidant/evasive during conversation. He continues to minimize his need for hospitalization and treatment. He is taking the Zoloft at this time however states it is not helping him much. He appears to be fairly superficial today. Continues to have a disheveled appearance. He is not future oriented. He states that he is sleeping on and off at nighttime. At this time patient denies homicidal ideations and denies any suicidal ideations, intent or plan. Patient denies any auditory, visual hallucinations and denies any paranoia or delusions. Patient denies any side effects from the medications and has been compliant with meds. Mental Status Exam: General Appearance: Patient appears to be stated age is alert, directable. Patient appears to have poor hygiene and grooming. Behavior: Patient is seated without any agitated behavior. Poor eye contact. avoidant. Speech: Patient's speech is fluent and nonpressured. concrete, monotone. Mood/Affect: Patient reports their mood is depressed still, affect is congruent and blunted. Suicidality/Homicidality: Patient denies having any homicidal ideation intent or plan. Endorses SI with plan Perceptions: Patient denies any visual hallucinations and denies any auditory hallucinations Though content/process: focus on discharge. poor insight and judgment. minimizing his need for tx Memory and concentration: AOX3, grossly intact for the purposes of this session Judgment and insight: poor Assessment: Major depressive disorder, recurrent, severe without psychotic features Generalized Anxiety Disorder Cannabis use disorder Tobacco use disorder Cluster B traits Plan: -Patient is admitted under voluntary status to [facility] for stabilization of psychiatric symptoms and safety. Patient signed adult voluntary form and medication consent and both placed in patient's chart. -Medications: Zoloft 50 mg daily for depression and anxiety with plan to increase if tolerated. - Nicotine patch -Patient was informed of the risks, benefits and side effects of the medication and patient verbally consented to taking the medications. -Internal Medicine consult to perform medical evaluation and physical. -SW on board for discharge planning. Encourage patient to participate in groups to work on coping skills.
[2022-09-08] MEDS: ATORVASTATIN 80 MG TAB PO SCH (20:14)
[2022-09-08] MEDS: MELATONIN 3 MG TABLET PO SCH (20:15)
[2022-09-09] MEDS: ASPIRIN 81 MG PO SCH (08:59)
[2022-09-09] MEDS: NICOTINE 7MG/24HR PATCH TRANSDERM SCH (08:59)
[2022-09-09] MEDS: SERTRALINE 50 MG TAB PO SCH (08:59)
[2022-09-09] MEDS: lisinopriL 5 MG TAB PO SCH (08:59)
--- NOTE | 2022-09-09 11:21 | P.PN ---
Progress Note - Text Progress Note Date: 09/09/22 Interval History: Patient was seen today for psychiatric follow-up. Patient was participating in the group today. He claims that he is doing a bit better compared to yesterday however continues to remain depressed. He states that he is still having suicidal thoughts and continues to speak about the future and not knowing where he is going to go. He was tearful at times during the interview today. He claims that the medications have been helping a bit with his mood however still has elevated anxiety. He was agreeable to have it increased for tomorrow. That he is eating fairly well and slept fairly last night. He is not future oriented. At this time patient denies homicidal ideations and denies any suicidal ideations, intent or plan. Patient denies any auditory, visual hallucinations and denies any paranoia or delusions. Patient denies any side effects from the medications and has been compliant with meds. Mental Status Exam: General Appearance: Patient appears to be stated age is alert, directable. Patient appears to have improving hygiene and grooming. Behavior: Patient is seated without any agitated behavior. Improving eye contact. avoidant. Speech: Patient's speech is fluent and nonpressured. concrete, monotone. Mood/Affect: Patient reports their mood is improving mildly however still depressed, affect is congruent and tearful at times Suicidality/Homicidality: Patient denies having any homicidal ideation intent or plan. Endorses SI without a plan. Perceptions: Patient denies any visual hallucinations and denies any auditory hallucinations Though content/process: focus on discharge. Mild improvement in appropriateness and more directable. No delusions or paranoia. Memory and concentration: AOX3, grossly intact for the purposes of this session Judgment and insight: poor, improving mildly Assessment: Major depressive disorder, recurrent, severe without psychotic features Generalized Anxiety Disorder Cannabis use disorder Tobacco use disorder Cluster B traits Plan: -Patient is admitted under voluntary status to [facility] for stabilization of psychiat emanuel symptoms and safety. Patient signed adult voluntary form and medication consent and both placed in patient's chart. -Medications: Increase Zoloft 100 mg daily for depression and anxiety with plan to increase if tolerated. - Nicotine patch -Patient was informed of the risks, benefits and side effects of the medication and patient verbally consented to taking the medications. -Internal Medicine consult to perform medical evaluation and physical. -SW on board for discharge planning. Encourage patient to participate in groups to work on coping skills. Likely discharge in 1-3 days if patient is improving. Patient will need referral to homeless care home.
[2022-09-09] MEDS: ATORVASTATIN 80 MG TAB PO SCH (20:50)
[2022-09-09] MEDS: MELATONIN 3 MG TABLET PO SCH (20:51)
[2022-09-10] MEDS: SERTRALINE 100 MG TAB PO SCH (08:35)
[2022-09-10] MEDS: ASPIRIN 81 MG PO SCH (08:35)
[2022-09-10] MEDS: NICOTINE 7MG/24HR PATCH TRANSDERM SCH (08:36)
[2022-09-10] MEDS: lisinopriL 5 MG TAB PO SCH (08:36)
[2022-09-10] MEDS ORDERED: SERTRALINE 50 MG TAB PO SCH (09:00)
--- NOTE | 2022-09-10 09:43 | P.PN ---
Progress Note - Text Progress Note Date: 09/10/22 Interval History: Patient was seen today for psychiatric follow-up. Patient states that he was only able to sleep "on and off" last night. He states that he is still having significant anxiety throughout the day. He states that "I'm always thinking what if? And it's always a negative thing". He referred several times to suicidal thoughts that his been having however at this time he is denying any intent or plan. He states that he is trying to go to groups and work on the activities as best as he can. He states that he is becoming "a bit more positive". He continues to be tearful during the interview especially when speaking about his future and his plans. He was catastrophizing at times about his situation. He continues to not be future oriented. He was agreeable to continue on with his medications and states that he felt "a bit high yesterday" but states that it only lasted for about a minute or 2 and then went away. That he is eating fairly well. At this time patient denies homicidal ideations intent or plan. Patient denies any auditory, visual hallucinations and denies any paranoia or delusions. Patient denies any side effects from the medications and has been compliant with meds. Mental Status Exam: General Appearance: Patient appears to be stated age is alert, directable. Patient appears to have improving hygiene and grooming. Behavior: Patient is seated without any agitated behavior. Improving eye contact. less avoidant. Speech: Patient's speech is fluent and nonpressured. concrete, monotone. Mood/Affect: Patient reports their mood is improving mildly however still depressed and anxious, affect is congruent and tearful Suicidality/Homicidality: Patient denies having any homicidal ideation intent or plan. Endorses SI without a plan. Perceptions: Patient denies any visual hallucinations and denies any auditory hallucinations Though content/process: less focused on discharge. hopelessness. Mild improvement in appropriateness and more directable. No delusions or paranoia. Memory and concentration: AOX3, grossly intact for the purposes of this session Judgment and insight: poor, improving mildly Assessment: Major depressive disorder, recurrent, severe without psychotic features Generalized Anxiety Disorder Cannabis use disorder Tobacco use disorder Cluster B traits Plan: -Patient is admitted under voluntary status to [facility] for stabilization of psychiatric symptoms and safety. Patient signed adult voluntary form and medication consent and both placed in patient's chart. -Medications: cotninue with Zoloft 100 mg daily for depression and anxiety with plan to increase if tolerated. start buspar 10 mg bid for anxiety. melatonin 6 m g qhs for sleep. -NRT - Nicotine patch -Patient was informed of the risks, benefits and side effects of the medication and patient verbally consented to taking the medications. -Internal Medicine consult to perform medical evaluation and physical. -SW on board for discharge planning. Encourage patient to participate in groups to work on coping skills. Likely discharge in 2-3 days if patient is improving. Patient will need referral to homeless [facility].
[2022-09-10] MEDS: busPIRone HCl 10 MG TAB PO SCH ×2 (11:36→20:42)
[2022-09-10] MEDS ORDERED: LORazepam 2 MG/ML INJ IM PRN (18:01)
[2022-09-10] MEDS: MELATONIN 3 MG TABLET PO SCH (20:41)
[2022-09-10] MEDS: ATORVASTATIN 80 MG TAB PO SCH (20:42)
[2022-09-11] MEDS: lisinopriL 5 MG TAB PO SCH (08:05)
[2022-09-11] MEDS: ASPIRIN 81 MG PO SCH (08:05)
[2022-09-11] MEDS: NICOTINE 7MG/24HR PATCH TRANSDERM SCH (08:05)
[2022-09-11] MEDS: busPIRone HCl 10 MG TAB PO SCH ×2 (08:05→20:58)
[2022-09-11] MEDS: SERTRALINE 100 MG TAB PO SCH (08:05)
--- NOTE | 2022-09-11 09:58 | P.PN ---
Progress Note - Text Progress Note Date: 09/11/22 Interval History: Patient was seen today for psychiatric follow-up. Patient was wandering the h allways. He appears to be in a brighter mood today with a brighter affect. He states that the anxiety has been improving as well as his mood. He states that he is attempting to go to groups at this time. He states that he only got about 2-3 hours last night however states that "it felt like a way more and I feel well rested". He claims that he drank a Pepsi late last night which may have affected his sleep. He claims that he would like to change the melatonin to as needed. He claims that his appetite is fair at this time. We spoke about different shelters which he is open to including [facility] and also [facility]. At this time patient denies any suicidal or homicidal ideations intent or plan. Patient denies any auditory, visual hallucinations and denies any paranoia or delusions. Patient denies any side effects from the medications and has been compliant with meds. Mental Status Exam: General Appearance: Patient appears to be stated age is alert, directable. Patient appears to have improving hygiene and grooming. Behavior: Patient is seated without any agitated behavior. Improving eye contact. Speech: Patient's speech is fluent and nonpressured. concrete, monotone. Mood/Affect: Patient reports their mood is improving mildly, affect is brighter today. Suicidality/Homicidality: Patient denies having any homicidal ideation intent or plan. Denies any SI , no plan or intent. Perceptions: Patient denies any visual hallucinations and denies any auditory hallucinations Though content/process: less focused on discharge. More future oriented. Mild improvement in appropriateness and more directable. No delusions or paranoia. Memory and concentration: AOX3, grossly intact for the purposes of this session Judgment and insight: improving mildly Assessment: Major depressive disorder, recurrent, severe without psychotic features Generalized Anxiety Disorder Cannabis use disorder Tobacco use disorder Cluster B traits Plan: -Patient is admitted under voluntary status to [facility] for stabilization of psychiatric symptoms and safety. Patient signed adult voluntary form and medication consent and both placed in patient's chart. -Medications: cotninue with Zoloft 100 mg daily for depression and anxiety. continue buspar 10 mg bid for anxiety. changed melatonin 6 mg qhs prn for sleep. -NRT - Nicotine patch -Patient was informed of the risks, benefits and side effects of the medication and patient verbally consented to taking the medications. -Internal Medicine consult to perform medical evaluation and physical. -SW on board for discharge planning. Encourage patient to participate in groups to work on coping skills. Lik[facility] discharge tomorrow to [facility].
[2022-09-11] MEDS: ATORVASTATIN 80 MG TAB PO SCH (20:58)
[2022-09-11] MEDS ORDERED: MELATONIN 3 MG TABLET PO SCH (21:00)
[2022-09-11] MEDS: MELATONIN 5 MG TABLET PO PRN (22:46)
[2022-09-12] MEDS: busPIRone HCl 10 MG TAB PO SCH ×2 (08:26→20:38)
[2022-09-12] MEDS: ASPIRIN 81 MG PO SCH (08:26)
[2022-09-12] MEDS: SERTRALINE 100 MG TAB PO SCH (08:26)
[2022-09-12] MEDS: NICOTINE 7MG/24HR PATCH TRANSDERM SCH (08:26)
[2022-09-12] MEDS: lisinopriL 5 MG TAB PO SCH (08:28)
--- NOTE | 2022-09-12 10:01 | P.PN ---
Progress Note - Text Progress Note Date: 09/12/22 Interval History: Patient was seen today for psychiatric follow-up. Patient was noted to be in group early this morning. He states that he is doing fairly well today. He claims that the medications have started to help him more. He states that he does not want any medications help him with sleep despite having poor sleep last night. He claims that he is still feeling well rested despite sleeping about 4 hours last night. States that he is showering well. He continues to be anxious about where he is going to be discharged to an [facility]. He was thankful again for the care that he is receiving. At this time patient denies any suicidal or homicidal ideations intent or plan. Patient denies any auditory, visual hallucinations and denies any paranoia or delusions. Patient denies any side effects from the medications and has been compliant with meds. Mental Status Exam: General Appearance: Patient appears to be stated age is alert, directable. Patient appears to have improving hygiene and grooming. Behavior: Patient is seated without any agitated behavior. Improving eye c ontact. Speech: Patient's speech is fluent and nonpressured. monotone. Mood/Affect: Patient reports their mood is improving mildly, affect is brighter today. Suicidality/Homicidality: Patient denies having any homicidal ideation intent or plan. Denies any SI , no plan or intent. Perceptions: Patient denies any visual hallucinations and denies any auditory hallucinations Though content/process: less focused on discharge. More future oriented. more directable. No delusions or paranoia. Memory and concentration: AOX3, grossly intact for the purposes of this session Judgment and insight: improving mildly Assessment: Major depressive disorder, recurrent, severe without psychotic features Generalized Anxiety Disorder Cannabis use disorder Tobacco use disorder Cluster B traits Plan: -Patient is admitted under voluntary status to MHU for stabilization of psychiatric symptoms and safety. Patient signed adult voluntary form and medication consent and both placed in patient's chart. -Medications: cotninue Zoloft 100 mg daily for depression and anxiety. continue buspar 10 mg bid for anxiety. melatonin 10 mg qhs prn for sleep. -NRT - Nicotine patch -Patient was informed of the risks, benefits and side effects of the medication and patient verbally consented to taking the medications. -Internal Medicine consult to perform medical evaluation and physical. -SW on board for discharge planning. Encourage patient to participate in groups to work on coping skills. Likely discharge on thursday to either [facility].
[2022-09-12] MEDS: ACETAMINOPHEN TAB 325 MG TAB PO PRN (16:28)
[2022-09-12] MEDS: ATORVASTATIN 80 MG TAB PO SCH (20:38)
[2022-09-13 06:39] VITALS: RESP 16
[2022-09-13] MEDS: NICOTINE 7MG/24HR PATCH TRANSDERM SCH (08:51)
[2022-09-13] MEDS: ATORVASTATIN 80 MG TAB PO SCH ×2 (08:52→21:03)
[2022-09-13] MEDS: lisinopriL 5 MG TAB PO SCH (08:52)
[2022-09-13] MEDS: ASPIRIN 81 MG PO SCH (08:52)
[2022-09-13] MEDS: SERTRALINE 100 MG TAB PO SCH (08:52)
[2022-09-13] MEDS: busPIRone HCl 10 MG TAB PO SCH ×2 (08:52→21:04)
--- NOTE | 2022-09-13 14:11 | P.PN ---
Progress Note - Text Progress Note Date: 09/13/22 Interval History: Patient was seen today for psychiatric follow-up. Patient appears brighter and says that he has been doing better with the current medication regimen. He reports that BuSpar has especially been beneficial for his anxiety. Patient is more future oriented and is interested in his discharged to a group home. At this time patient denies any suicidal or homicidal ideations intent or plan. Patient denies any auditory, visual hallucinations and denies any paranoia or delusions. Patient denies any side effects from the medications and has been compliant with meds. Mental Status Exam: General Appearance: Patient appears to be stated age is alert, directable. Patient appears to have improving hygiene and grooming. Behavior: Patient is seated without any agitated behavior. Improving eye contact. Speech: Patient's speech is fluent and nonpressured. monotone. Mood/Affect: Patient reports their mood is "good", affect is brighter today. Suicidality/Homicidality: Patient denies having any homicidal ideation intent or plan. Denies any SI , no plan or intent. Perceptions: Patient denies any visual hallucinations and denies any auditory hallucinations Though content/process: More future oriented. more directable. No delusions or paranoia. Memory and concentration: AOX3, grossly intact for the purposes of this session Judgment and insight: improving mildly Assessment: Major depressive disorder, recurrent, severe without psychotic features Generalized Anxiety Disorder Cannabis use disorder Tobacco use disorder Cluster B traits Plan: -Patient is admitted under voluntary status to MHU for stabilization of psychiatric symptoms and safety. Patient signed adult voluntary form and medication consent and both placed in patient's chart. -Medications: continue Zoloft 100 mg daily for depression and anxiety. continue buspar 10 mg bid for anxiety. melatonin 10 mg qhs prn for sleep. -NRT - Nicotine patch -Patient was informed of the risks, benefits and side effects of the medication and patient verbally consented to taking the medications. -Internal Medicine consult to perform medical evaluation and physical. -SW on board for discharge planning. Encourage patient to participate in groups to work on coping skills. Likely discharge on thursday to either [facility].
[2022-09-14] MEDS: NICOTINE 7MG/24HR PATCH TRANSDERM SCH (08:30)
[2022-09-14] MEDS: lisinopriL 5 MG TAB PO SCH (08:30)
[2022-09-14] MEDS: busPIRone HCl 10 MG TAB PO SCH ×2 (08:30→19:43)
[2022-09-14] MEDS: ASPIRIN 81 MG PO SCH (08:31)
[2022-09-14] MEDS: SERTRALINE 100 MG TAB PO SCH (08:31)
--- NOTE | 2022-09-14 18:29 | P.PN ---
Progress Note - Text Progress Note Date: 09/14/22 Interval History: Patient was seen today for psychiatric follow-up. Patient continues to appear bright and says that he has been doing better with the current medication regimen. He states that he has been having some trouble sleeping but is hopeful that this will improve once he is out of the hospital. Patient is more future oriented and is hopeful to be discharged tomorrow and would like to speak with the social work case manager tomorrow about his placement. At this time patient denies any suicidal or homicidal ideations intent or plan. Patient denies any auditory, visual hallucinations and denies any paranoia or delusions. Patient denies any side effects from the medications and has been compliant with meds. Mental Status Exam: General Appearance: Patient appears to be stated age is alert, directable. Patient appears to have good hygiene and grooming. Behavior: Patient is seated without any agitated behavior. Improving eye contact. Speech: Patient's speech is fluent and nonpressured. monotone. Mood/Affect: Patient reports their mood is "good", affect is brighter today. Suicidality/Homicidality: Patient denies having any homicidal ideation intent or plan. Denies any SI , no plan or intent. Perceptions: Patient denies any visual hallucinations and denies any auditory hallucinations Though content/process: More future oriented. more directable. No delusions or paranoia. Memory and concentration: AOX3, grossly intact for the purposes of this session Judgment and insight: improving mildly Assessment: Major depressive disorder, recurrent, severe without psychotic features Generalized Anxiety Disorder Cannabis use disorder Tobacco use disorder Cluster B traits Plan: -Patient is admitted under voluntary status to [facility] for stabilization of psychiatric symptoms and safety. Patient signed adult voluntary form and medication consent and both placed in patient's chart. -Medications: continue Zoloft 100 mg daily for depression and anxiety. continue buspar 10 mg bid for anxiety. melatonin 10 mg qhs prn for sleep. -NRT - Nicotine patch -Patient was informed of the risks, benefits and side effects of the medication and patient verbally consented to taking the medications. -Internal Medicine consult to perform medical evaluation and physical. -SW on board for discharge planning. Encourage patient to participate in groups to work on coping skills. Likely discharge on thursday to [facility].
[2022-09-14] MEDS: ATORVASTATIN 80 MG TAB PO SCH (19:43)
[2022-09-14] MEDS: MELATONIN 5 MG TABLET PO PRN (22:17)
[2022-09-15 06:31] VITALS: BP 104/52; PULSE 61; TEMP 97.9
[2022-09-15] MEDS: NICOTINE 7MG/24HR PATCH TRANSDERM SCH (08:46)
[2022-09-15] MEDS: ASPIRIN 81 MG PO SCH (08:47)
[2022-09-15] MEDS: busPIRone HCl 10 MG TAB PO SCH (08:47)
[2022-09-15] MEDS: lisinopriL 5 MG TAB PO SCH (08:47)
[2022-09-15] MEDS: SERTRALINE 100 MG TAB PO SCH (08:47)
--- NOTE | 2022-09-15 10:06 | P.DS ---
Providers Date of admission: 09/06/22 02:06 Expected date of discharge: 09/15/22 Attending physician: Raymond Encarnacion MD Consults: 09/06/22 02:18 Consult Physician Routine Consulting Provider: Osmani Isaacs Consult Reason/Comments: H& P Do you want consulting provider notified?: Yes Primary care physician: [facility] - Discharge Diagnosis(es) (1) Major depressive disorder without psychotic features Current Visit: Yes Status: Acute Priority: High (2) Generalized anxiety disorder Current Visit: Yes Status: Acute Priority: Medium (3) Cannabis use disorder Current Visit: Yes Status: Acute Priority: Medium (4) Nicotine dependence Current Visit: Yes Status: Acute Priority: Low (5) Cluster B personality disorder Current Visit: Yes Status: Acute Priority: Low (6) Homelessness Current Visit: Yes Status: Acute Priority: High Hospital Course: Admission HPI: Admission note was completed by Dr Scherer "Patient is a single, unemployed, 56-year-old [place] male who is presenting with suicidal ideation. Patient reports long hx of depression since childhood. He reports recent triggers including breakup with girlfriend of 8 years and siblings being diagnosed with tumors. He has also been strained due to his homelessness and unemployment. He endorses SI with plan to hang himself or obtain a firearm to shoot himself. He denies current access to firearms. He reports he would "like to end it." He endorses feeling hopeless and worthless. He endorses trouble sleeping and decreased appetite due to his mood. More recently, he has been having increased appetite. He has low energy levels and anhedonia. States that he used to be on Celexa but thought that he would be fine without it and stopped taking it early this year. Patient is interested in stabilization of his psychotropic medications. He reports being worried constantly. He reports being on edge, experiences restlessness, and keyed up. He denies symptoms of rossy and psychosis. He denies homicidal ideation, as asked and assessed." Hospital course: Upon admission to the unit patient was directable and agreeable to commence treatment and signed adult voluntary form . Patient got along well with other pa tients on the unit and followed unit protocol. Patient was compliant with the medications and denied any side effects throughout hospital course. Patient was started on Zoloft 100 mg daily at bedtime for depression/anxiety, BuSpar 10 mg twice a day for anxiety, melatonin 10 mg daily at bedtime when necessary for sleep. Patient spoke of his stressors and engaged in therapy both group and individual. Patient was also seen by medical team for history and physical exam. Throughout the course of the hospitalization patient gradually improved with regards to mood, anxiety, suicidal thoughts, sleep and became more future oriented with improved insight and judgment. On the day of discharge patient denied any suicidal or homicidal ideations intent or plan denied any auditory or visual hallucinations. Patient endorsed wanting to live for his future and health. The patient denied any access to guns or weapons. Patient denied any paranoia and did not endorse any delusions. Patient does have a significant history of substance abuse and was counseled on abstaining from all substances including alcohol and marijuana. Patient was also counseled on the medications and need for regular compliance and was encouraged to follow-up with their outpatient appointment for mental health and also for primary care. SW to give referral to [facility] today for patient in [facility]. Mental status exam: General Appearance: Patient appears to be thin, stated age is alert, pleasant, and cooperative. Patient is in no acute distress and has improved hygiene and grooming Behavior: Patient is calmly seated without any agitated behavior. Speech: Patient's speech is fluent and nonpressured. Mood/Affect: Patient reports their mood is "good", affect is congruent Suicidality/Homicidality: Patient denies having any suicidal or homicidal ideation intent or plan. Perceptions: Patient denies any auditory or visual hallucinations. Though content/process: There is no evidence of any delusional thought content and thought process is linear and goal-directed. Memory and concentration: AOX3, grossly intact for the purposes of this session. Can spell "WORLD" backwards correctly. Judgment and insight: improved with guarded prognosis Impression: Major depressive disorder, without psychotic features Generalized anxiety disorder Cannabis use disorder Nicotine dependence Cluster B personality traits Homelessness Plan: -Continue with discharge today as patient has improved and stabilized psychiatrically and is not currently an imminent threat to himself and/or others. Patient will remain at chronically elevated risk for harm to self and/or others due to his impulsivity. -Continue medications: Continue Zoloft 100 mg daily at bedtime for mood/anxiety, BuSpar 10 mg twice a day for anxiety, melatonin 10 mg daily at bedtime when necessary for sleep. -Patient was counseled on the need for medication compliance and appropriate follow-up at mental health and also primary care for medical issues. Patient verbalized understanding and agreed. -Social work to help coordinate patient's discharge today and give referral to [facility] in [facility]. Social work also to arrange for patients follow up appointments with [facility] for psychiatric care along with follow up with primary care provider. -Patient counseled on abstaining from recreational drugs and marijuana and alcohol. Was informed/educated on the adverse effects on their physical and mental health. Patient verbally agreed and understood. Patient was offered substance abuse treatment however declined at this time. -Patient was instructed to return to the hospital or seek immediate medical care if their psychiatric or medical symptoms do worsen or reoccur. Allergies Allergy/AdvReac Type Severity Reaction Status Date / Time No Known Allergies Allergy Verified 09/05/22 21:12 Laboratory Results WBC 10.6 k/uL (3.8-10.6) 09/05/22 22:09 RBC 5.42 m/uL (4.30-5.90) 09/05/22 22:09 Hgb 17.1 gm/dL (13.0-17.5) 09/05/22 22:09 Hct 50.0 % (39.0-53.0) 09/05/22 22:09 MCV 92.2 fL (80.0-100.0) 09/05/22 22:09 MCH 31.5 pg (25.0-35.0) 09/05/22 22:09 MCHC 34.2 g/dL (31.0-37.0) 09/05/22 22:09 RDW 12.7 % (11.5-15.5) 09/05/22 22:09 Plt Count 224 k/uL (150-450) 09/05/22 22:09 MPV 7.6 09/05/22 22:09 Neutrophils % 64 % 09/05/22 22:09 Lymphocytes % 27 % 09/05/22 22:09 Monocytes % 5 % 09/05/22 22:09 Eosinophils % 2 % 09/05/22 22:09 Basophils % 1 % 09/05/22 22:09 Neutrophils # 6.8 k/uL (1.3-7.7) 09/05/22 22:09 Lymphocytes # 2.8 k/uL (1.0-4.8) 09/05/22 22:09 Monocytes # 0.5 k/uL (0-1.0) 09/05/22 22:09 Eosinophils # 0.2 k/uL (0-0.7) 09/05/22 22:09 Basophils # 0.1 k/uL (0-0.2) 09/05/22 22:09 Sodium 134 mmol/L (137-145) L 09/05/22 22:09 Potassium 3.9 mmol/L (3.5-5.1) 09/05/22 22:09 Chloride 103 mmol/L (98-107) 09/05/22 22:09 Carbon Dioxide 24 mmol/L (22-30) 09/05/22 22:09 Anion Gap 7 mmol/L 09/05/22 22:09 BUN 8 mg/dL (9-20) L 09/05/22 22:09 Creatinine 0.62 mg/dL (0.66-1.25) L 09/05/22 22:09 Est GFR (CKD-EPI)AfAm >90 (>60 ml/min/1.73 sqM) 09/05/22 22:09 Est GFR (CKD-EPI)NonAf >90 (>60 ml/min/1.73 sqM) 09/05/22 22:09 Glucose 85 mg/dL (74-99) 09/05/22 22:[address] Glu mg/dL 116 09/05/22 22:09 Hemoglobin A1c 5.7 % (0.0-6.0) 09/05/22 22:09 Calcium 9.0 mg/dL (8.4-10.2) 09/05/22 22:09 Total Bilirubin 0.5 mg/dL (0.2-1.3) 09/05/22 22:09 AST 24 U/L (17-59) 09/05/22 22:09 ALT 16 U/L (4-49) 09/05/22 22:09 Alkaline Phosphatase 76 U/L (38-126) 09/05/22 22:09 Total Protein 6.6 g/dL (6.3-8.2) 09/05/22 22:09 Albumin 4.2 g/dL (3.5-5.0) 11/18/22 22:09 Triglycerides 89.90 mg/dL (0.00-149.00) 09/05/22 22:09 Cholesterol 218.00 mg/dL (0.00-200.00) H 09/05/22 22:09 LDL Cholesterol, Calc 139.1 mg/dL (0.0-131.0) H 09/05/22 22:09 VLDL Cholesterol, Calc 17.98 mg/dL (5.00-40.00) 09/05/22 22:09 HDL Cholesterol 60.90 mg/dL (40.00-60.00) H 09/05/22 22:09 Cholesterol/HDL Ratio 3.58 Ratio 09/05/22 22:09 TSH 2.860 mIU/L (0.465-4.680) 09/05/22 22:09 Urine Color Light Yellow 09/05/22 21:57 Urine Appearance Clear (Clear) 09/05/22 21:57 Urine pH 5.5 (5.0-8.0) 09/05/22 21:57 Ur Specific [place] 1.004 (1.001-1.035) 09/05/22 21:57 Urine Protein Negative (Negative) 09/05/22 21:57 Urine Glucose (UA) Negative (Negative) 09/05/22 21:57 Urine Ketones Negative (Negative) 09/05/22 21:57 Urine Blood Negative (Negative) 09/05/22 21:57 Urine Nitrite Negative (Negative) 09/05/22 21:57 Urine Bilirubin Negative (Negative) 09/05/22 21:57 Urine Urobilinogen <2.0 mg/dL (<2.0) 09/05/22 21:57 Ur Leukocyte Esterase Negative (Negative) 09/05/22 21:57 Urine Opiates Screen Not Detected (NotDetected) 09/05/22 21:57 Ur Oxycodone Screen Not Detected (NotDetected) 09/05/22 21:57 Urine Methadone Screen Not Detected (NotDetected) 09/05/22 21:57 Ur Propoxyphene Screen Not Detected (NotDetected) 09/05/22 21:57 Ur Barbiturates Screen Not Detected (NotDetected) 09/05/22 21:57 U Tricyclic Antidepress Not Detected (NotDetected) 09/05/22 21:57 Ur Phencyclidine Scrn Not Detected (NotDetected) 09/05/22 21:57 Ur Amphetamines Screen Not Detected (NotDetected) 09/05/22 21:57 U Methamphetamines Scrn Not Detected (NotDetected) 09/05/22 21:57 U Benzodiazepines Scrn Not Detected (NotDetected) 09/05/22 21:57 Urine Cocaine Screen Not Detected (NotDetected) 09/05/22 21:57 U Marijuana (THC) Screen Detected (NotDetected) H 09/05/22 21:57 Coronavirus (PCR) Not Detected (Not Detectd) 09/05/22 22:09 Vital Signs Temp 97.9 F 09/15/22 06:31 Pulse 61 09/15/22 06:31 Resp 16 09/15/22 06:31 BP 104/52 09/15/22 06:31 Pulse Ox 99 09/15/22 06:31 FiO2 Intake & Output 09/14/22 09/15/22 09/15/22 18:59 06:59 18:59 Weight 65.8 kg Patient Condition at Discharge: Stable Plan - Discharge Summary New Discharge Prescriptions: New Nicotine 7Mg/24Hr Patch [Habitrol] 1 patch TRANSDERM DAILY 14 Days patch Melatonin 10 mg PO HS PRN 30 Days tab PRN Reason: Insomnia Aspirin 81 mg PO DAILY 30 Days tab busPIRone HCl [Buspar] 10 mg PO BID 30 Days tab Acetaminophen Tab [Tylenol] 650 mg PO Q4HR PRN tab PRN Reason: Pain/Discomfort Sertraline [Zoloft] 100 mg PO HS 30 Days tab Continue Atorvastatin [Lipitor] 80 mg PO HS #30 tab lisinopriL [Zestril] 5 mg PO DAILY #30 tab Discontinued Aspirin 81 mg PO DAILY #303 Metoprolol Tartrate [Lopressor] 25 mg PO BID #60 tab Nicotine 21Mg/24Hr Patch [Habitrol] 1 patch TRANSDERM DAILY #30 patch Nitroglycerin Sl Tabs [Nitrostat] 0.4 mg SUBLINGUAL Q5M PRN #25 tab PRN Reason: Chest Pain Prasugrel [Effient] 10 mg PO DAILY #30 tab Discharge Medication List Acetaminophen Tab [Tylenol] 650 mg PO Q4HR PRN tab 09/15/22 [Rx] Aspirin 81 mg PO DAILY 30 Days tab 09/15/22 [Rx] Atorvastatin [Lipitor] 80 mg PO HS #30 tab 09/15/22 [Rx] Melatonin 10 mg PO HS PRN 30 Days tab 09/15/22 [Rx] Nicotine 7Mg/24Hr Patch [Habitrol] 1 patch TRANSDERM DAILY 14 Days patch 09/15/22 [Rx] Sertraline [Zoloft] 100 mg PO HS 30 Days tab 09/15/22 [Rx] busPIRone HCl [Buspar] 10 mg PO BID 30 Days tab 09/15/22 [Rx] lisinopriL [Zestril] 5 mg PO DAILY #30 tab 09/15/22 [Rx] Follow up Appointment(s)/Referral(s): [facility] [Outside] - 09/19/22 10:00 am (with julissa woodruff) [facility] [Primary Care Provider] - 1-2 days Activity/Diet/Wound Care/Special Instructions: Avoid the use of street drugs and alcohol. Take all prescriptions as prescribed. When you are in need of refills on your medications, please contact your medical provider and/or outpatient psychiatrist to have this done. Please go to scheduled outpatient appointment for aftercare treatment. If symptoms return or become worse, call the crisis line at and/or go to the nearest emergency room for evaluation. Discharge Disposition: OTHER INSTITUTION NOT DEFINED
== END 2022-09-15 11:20 | disposition home or self-care (01) | DRG 885 ==
LOC: EC 20:56 → 3MHU 09-06 02:06
PROVIDERS: ADMIT Psychiatry & Neurology Psychiatry; ATTEND Psychiatry & Neurology Psychiatry
DX: F33.2 Major depressive disorder, recurrent severe without psychotic features (principal); R45.851 Suicidal ideations; F17.210 Nicotine dependence, cigarettes, uncomplicated; F12.10 Cannabis abuse, uncomplicated; F41.1 Generalized anxiety disorder; F60.89 Other specific personality disorders; R45.1 Restlessness and agitation; I25.2 Old myocardial infarction; Z59.00 Homelessness unspecified; Z56.0 Unemployment, unspecified; Z79.02 Long term (current) use of antithrombotics/antiplatelets; Z79.82 Long term (current) use of aspirin; Z79.899 Other long term (current) drug therapy; Z81.8 Family history of other mental and behavioral disorders; Z53.29 Procedure and treatment not carried out because of patient's decision for other reasons; Z28.310 Unvaccinated for COVID-19; Z28.21 Immunization not carried out because of patient refusal
CPT/HCPCS: 36415; 80053; 80061; 80306; 81003; 82075; 83036; 84443; 85025; 87635; 99285

== ENCOUNTER 2023-10-09 07:41 | Observation (INO) | payer MEDICARE, OTHER ==
[2023-10-09 07:56] VITALS: TEMP 98
--- NOTE | 2023-10-09 08:21 | ED ---
Chest Pain HPI - General Chief Complaint: Chest Pain Stated Complaint: Chest pains Time Seen by Provider: 10/09/23 08:20 Source: patient, RN notes reviewed Mode of arrival: ambulatory Limitations: no limitations - History of Present Illness Initial Comments: 57-year-old male presents emergency Department with chief complaint of chest discomfort. He states, was the night. It's left-sided chest pain that constant throbbing pain chest pain he states he does have left arm pain in which she has some shoulder pain with movement but states his constant aching his left arm also. Patient's had prior stent 2017 he states that he had a history of hypertension and hyperlipidemia he has not taken any meds and a long period of time. Patient denies any nausea vomiting. Patient does admit is a smoker. - Related Data Previous Rx's Medication Instructions Recorded Acetaminophen Tab [Tylenol] 650 mg PO Q4HR PRN tab 09/15/22 Aspirin 81 mg PO DAILY 30 Days tab 09/15/22 Atorvastatin [Lipitor] 80 mg PO HS #30 tab 09/15/22 Melatonin 10 mg PO HS PRN 30 Days tab 09/15/22 Nicotine 7Mg/24Hr Patch [Habitrol] 1 patch TRANSDERM DAILY 14 Days 09/15/22 patch Sertraline [Zoloft] 100 mg PO HS 30 Days tab 09/15/22 busPIRone HCl [Buspar] 10 mg PO BID 30 Days tab 09/15/22 lisinopriL [Zestril] 5 mg PO DAILY #30 tab 09/15/22 Allergies Allergy/AdvReac Type Severity Reaction Status Date / Time No Known Allergies Allergy Verified 10/09/23 07:46 Review of Systems ROS Statement: Those systems with pertinent positive or pertinent negative responses have been documented in the HPI. ROS Other: All systems not noted in ROS Statement are negative. EKG Findings - EKG Comments: EKG Findings:: EKG performed at 7:52 sinus rhythm with rate of 66 FL 207 QRS 85 QT/QTC 377/391 - EKG Results: EKG: interpreted by CHRISTINE Past Medical History Past Medical History: No Reported History, GERD/Reflux, Myocardial Infarction ([place]) Additional Past Medical History / Comment(s): 04-08-17 STEMI. ARTHRITIS IN NECK. Last Myocardial Infarction Date:: 2016 History of Any Multi-Drug Resistant Organisms: None Reported Past Surgical History: Appendectomy, Heart Catheterization With Stent Additional Past Surgical History / Comment(s): 04-08-17 HEART CATH W/ STENT TO RCA Past Anesthesia/Blood Transfusion Reactions: No Reported Reaction Date of Last Stent Placement:: 2016 Past Psychological History: Depression Smoking Status: Current every day smoker Past Alcohol Use History: None Reported Past Drug Use History: Marijuana - Past Family History Mother Family Medical History: COPD Additional Family Medical History / Comment(s): EMPHYSEMA Father Family Medical History: Cancer Additional Family Medical History / Comment(s): LUNG CANCER General Exam - General Exam Comments Initial Comments: Visual Physical Exam Vital signs reviewed General: Well-appearing, nontoxic, no acute distress. Head: Normocephalic, atraumatic Eyes: PERRLA, EOMI ENT: Airway patent Chest: Nonlabored breathing Skin: No visual rash, normal skin tone Neuro: Alert and oriented 3 Musculoskeletal: No gross abnormalities Limitations: no limitations General appearance: alert, in no apparent distress Head exam: Present: atraumatic, normocephalic, normal inspection Eye exam: Present: normal appearance, PERRL, EOMI. Absent: scleral icterus, conjunctival injection, periorbital swelling ENT exam: Present: normal exam, normal oropharynx, mucous membranes moist Neck exam: Present: normal inspection, full ROM. Absent: tenderness, meningismus, lymphadenopathy Respiratory exam: Present: normal lung sounds bilaterally. Absent: respiratory distress, wheezes, rales, rhonchi, stridor Cardiovascular Exam: Present: regular rate, normal rhythm, normal heart sounds. Absent: systolic murmur, diastolic murmur, rubs, gallop, clicks GI/Abdominal exam: Present: soft, normal bowel sounds. Absent: distended, tenderness, guarding, rebound, rigid Neurological exam: Present: alert, oriented X3, CN II-XII intact, reflexes normal. Absent: motor sensory deficit Course Vital Signs 10/09/23 10/09/23 07:44 09:56 Temperature 98 F Pulse Rate 72 68 Respiratory 20 16 Rate Blood Pressure 138/97 129/82 O2 Sat by Pulse 99 96 Oximetry Chest Pain MDM - MDM I completed the quick note portion of this chart signed Ren Tiwari PA-C Was pt. sent in by a medical professional or institution (, [facility], FLOTATION TENDER, urgent care, hospital, or fci...) When possible be specific @ -No Did you speak to anyone other than the patient for history (EMS, parent, family, police, friend...)? What history was obtained from this source @ -No Did you review nursing and triage notes (agree or disagree)? Why? @ -I reviewed and agree with nursing and triage notes Were old charts reviewed (outside hosp., previous admission, EMS record, old EKG, old radiological studies, urgent care reports/EKG's, fci records)? Report findings @ -No old charts were reviewed Differential Diagnosis (chest pain, altered mental status, abdominal pain women, abdominal pain men, vaginal bleeding, weakness, fever, dyspnea, syncope, headache, dizziness, GI bleed, back pain, seizure, CVA, palpatations, mental health, musculoskeletal)? @ -Differential Chest Pain: Stable Angina, Unstable Angina, STEMI, NSTEMI Aortic Dissection, Pneumothorax, Musculoskeletal, Esophageal Spasm GERD, Cholecystitis, Pancreatitis, Zoster, this is not meant to be an all-inclusive list. e EKG interpreted by me (3pts min.). @ -Chest x-ray shows no acute cardiopulmonary process X-rays interpreted by me (1pt min.). @ -None done CT interpreted by me (1pt min.). @ -None done U/S interpreted by me (1pt. min.). @ -None done What testing was considered but not performed or refused? (CT, X-rays, U/S, labs)? Why? @ -None What meds were considered but not given or refused? Why? @ -None Did you discuss the management of the patient with other professionals (professionals i.e. , PA, FLOTATION TENDER, lab, RT, psych nurse, social media designer, induction coordination power engineer, teacher, operations officer afloat, porter sample case)? Give summary @ -[Dr. Blackburn for admission given his significant cardiac history including cardiac rule out Was smoking cessation discussed for >3mins.? @ -No Was critical care preformed (if so, how long)? @ -No Were there social determinants of health that impacted care today? How? (Homelessness, low income, unemployed, alcoholism, drug addiction, transportation, low edu. Level, literacy, decrease access to med. care, shelter, rehab)? @ -No Was there de-escalation of care discussed even if they declined (Discuss DNR or withdrawal of care, Hospice)? DNR status @ -No What co-morbidities impacted this encounter? (DM, HTN, Smoking, COPD, CAD, Cancer, CVA, ARF, Chemo, Hep., AIDS, mental health diagnosis, sleep apnea, morbid obesity)? @ -CAD, hypertension, hyperlipidemia Was patient admitted / discharged? Hospital course, mention meds given and route, prescriptions, significant lab abnormalities, going to OR and other pertinent info. @ -Admitted patient had initial workup including labs EKG and chest x-ray and acute findings patient has a concerning history and symptoms. Patient admitted for cardiac rule out including repeat troponin, echocardiogram and cardiology evaluation Undiagnosed new problem with uncertain prognosis? @ -No Drug Therapy requiring intensive monitoring for toxicity (Heparin, Nitro, Insulin, Cardizem)? @ -No Were any procedures done? @ -No Diagnosis/symptom? @ -Chest pain Acute, or Chronic, or Acute on Chronic? @ -Acute Uncomplicated (without systemic symptoms) or Complicated (systemic symptoms)? @ -complicated Side effects of treatment? @ -No Exacerbation, Progression, or Severe Exacerbation? @ -No Poses a threat to life or bodily function? How? (Chest pain, [place], [place], pneumonia, PE, COPD, DKA, ARF, appy, cholecystitis, CVA, Diverticulitis, Homicidal, Suicidal, threat to staff... and all critical care pts) @ -[Yes possible ACS Disposition Clinical Impression: Chest pain Disposition: ADMITTED IP TO THIS [facility] Condition: Fair Time of Disposition: 09:16
[2023-10-09 08:28] LABS: Basophils % (A) 0 %; Eosinophils # (A) 0.2 k/uL (0-0.7); Eosinophils % (A) 2 %; HCT 54.6 % (39.0-53.0); HGB 18.3 gm/dL (13.0-17.5); Lymphocytes # (A) 2.2 k/uL (1.0-4.8); Lymphocytes % (A) 21 %; MCHC 33.5 g/dL (31.0-37.0); MCV 95.6 fL (80.0-100.0); Mean Platelet Volume 8.4; Monocytes # (A) 0.5 k/uL (0-1.0); Monocytes % (A) 5 %; Neutrophils # (A) 7.4 k/uL (1.3-7.7); Neutrophils % (A) 71 %; RBC 5.71 m/uL (4.30-5.90); RDW 13.1 % (11.5-15.5); WBC 10.4 k/uL (3.8-10.6)
[2023-10-09 08:31] LABS: Platelet Count 201 k/uL (150-450)
[2023-10-09 08:33] LABS: Partial Thromboplastin Time 26.5 sec (22.0-30.0); Prothrombin Time 10.6 sec (10.0-12.5)
--- NOTE | 2023-10-09 08:36 | XR ---
EXAMINATION TYPE: XR chest 2V DATE OF EXAM: 10/09/2023 8:18 AM CLINICAL INDICATION:Male, 57 years old with history of Chest Pain; [facility] COMPARISON: Chest radiographs from 04/08/2017. TECHNIQUE: XR chest 2V Frontal and lateral views of the chest. FINDINGS: Lungs/Pleura: There is flattening of the diaphragm with increased lucency of the lungs. No evidence o f pneumothorax, pleural effusion or focal consolidation. Pulmonary vascularity: Unremarkable. Heart/mediastinum: Cardiomediastinal silhouette is unremarkable. Musculoskeletal: No acute osseous pathology. IMPRESSION: 1. No acute cardiopulmonary disease process. 2. COPD changes.
[2023-10-09 08:45] LABS: ALT 19 U/L (4-49); African American GFR (CKD) >90 (>60 ml/min/1.73 sqM); Albumin 4.7 g/dL (3.5-5.0); Anion Gap 12 mmol/L; Blood Urea Nitrogen 11 mg/dL (9-20); Calcium 9.7 mg/dL (8.4-10.2); Carbon Dioxide 26 mmol/L (22-30); Chloride 100 mmol/L (98-107); Glucose 98 mg/dL (74-99); Non-African American GFR(CKD) >90 (>60 ml/min/1.73 sqM); Sodium 138 mmol/L (137-145); Total Bilirubin 0.9 mg/dL (0.2-1.3)
[2023-10-09 09:11] LABS: AST 31 U/L (17-59); Alkaline Phosphatase 65 U/L (38-126); Potassium 4.9 mmol/L (3.5-5.1); Total Protein 7.8 g/dL (6.3-8.2)
[2023-10-09] MEDS ORDERED: ASPIRIN 81 MG PO STA (09:34)
[2023-10-09] MEDS ORDERED: NITROGLYCERIN SL TABS 0.4 MG TAB SUBLINGUAL PRN (09:34)
[2023-10-09 10:04] VITALS: BP 129/82; PULSE 68; RESP 16
--- NOTE | 2023-10-09 13:07 | P.PN ---
Progress Note - Text Progress Note Date: 10/09/23 Patient left AMA without being seen.
[2023-10-10] MEDS ORDERED: ASPIRIN 325 MG TAB PO SCH (09:00)
== END 2023-10-09 11:53 | disposition home or self-care (01) ==
LOC: EC 07:41 → SUPCPDRO 07:41 → 6NMEDSUR 10:09
PROVIDERS: ADMIT Student in an Organized Health Care Education/Training Program; ATTEND Student in an Organized Health Care Education/Training Program
DX: R07.89 Other chest pain (principal); Z53.29 Procedure and treatment not carried out because of patient's decision for other reasons; M25.519 Pain in unspecified shoulder; M79.602 Pain in left arm; I10 Essential (primary) hypertension; E78.5 Hyperlipidemia, unspecified; Z95.5 Presence of coronary angioplasty implant and graft; F17.200 Nicotine dependence, unspecified, uncomplicated; Z79.82 Long term (current) use of aspirin; Z79.899 Other long term (current) drug therapy; K21.9 Gastro-esophageal reflux disease without esophagitis; I25.2 Old myocardial infarction; F32.A Depression, unspecified; M19.90 Unspecified osteoarthritis, unspecified site; Z82.5 Family history of asthma and other chronic lower respiratory diseases; Z80.1 Family history of malignant neoplasm of trachea, bronchus and lung
CPT/HCPCS: 99285; 36415; 93005; 80053; 83735; 84484; 85025; 85610; 85730; 71046; G0378